=== PATIENT | male | born 1955 | race Caucasian/White ===

== ENCOUNTER 2021-10-06 16:58 | Outpatient (CLI) | payer BC, SELFPAY ==
[2021-10-06 17:38] LABS: Alanine Aminotransferase 32 U/L (6-50); Albumin Level 4.1 g/dL (3.5-5.1); Alkaline Phosphatase 85 U/L (38-126); Anion Gap 10 mmol/L (8-16); Aspartate Amino Transferase 54 U/L (17-59); Bilirubin,Total 0.6 mg/dL (0.2-1.3); Blood Urea Nitrogen 22 mg/dL (9-20); Calcium 8.7 mg/dL (8.4-10.2); Carbon Dioxide 25 mmol/L (22-30); Chloride 103 mmol/L (98-107); Estimated Glomerular Filt Rate 55; Glucose 87 mg/dL (65-110); Potassium 3.7 mmol/L (3.4-5.0); Sodium 138 mmol/L (137-145)
== END 2021-10-06 16:59 | disposition home or self-care (01) ==
LOC: ANHLAB 17:02
PROVIDERS: PCP Family Medicine; Visit Provider Family Medicine
DX: D64.9 Anemia, unspecified (principal); E87.1 Hypo-osmolality and hyponatremia
CPT/HCPCS: 36415; 80053

== ENCOUNTER 2021-10-11 16:43 | Outpatient (CLI) | payer BC, SELFPAY ==
[2021-10-11 17:07] LABS: Cholesterol 162 mg/dL (0-200); HDL Direct 81 mg/dL; Triglycerides 43 mg/dL (<150)
[2021-10-11 17:08] LABS: Alanine Aminotransferase 29 U/L (6-50); Albumin Level 4.2 g/dL (3.5-5.1); Alkaline Phosphatase 88 U/L (38-126); Anion Gap 9 mmol/L (8-16); Aspartate Amino Transferase 49 U/L (17-59); Bilirubin,Total 0.8 mg/dL (0.2-1.3); Blood Urea Nitrogen 21 mg/dL (9-20); Calcium 8.5 mg/dL (8.4-10.2); Carbon Dioxide 27 mmol/L (22-30); Chloride 104 mmol/L (98-107); Estimated Glomerular Filt Rate > 60; Glucose 92 mg/dL (65-110); Potassium 3.8 mmol/L (3.4-5.0); Sodium 140 mmol/L (137-145)
[2021-10-11 17:17] LABS: LDL Cholesterol Direct 54 mg/dL
[2021-10-11 17:33] LABS: Vitamin D 25 Hydroxy 13.9 ng/mL
[2021-10-11 17:37] LABS: Prostate Specific Antigen 1.6 ng/mL (< OR = 4.0)
[2021-10-11 17:57] LABS: Ferritin 9.76 ng/mL (11.1-264)
[2021-10-11 18:12] LABS: Folic Acid 9.8 ng/mL (2.76->20)
[2021-10-11 18:25] LABS: Free T4 Free Thyroxine 1.02 ng/mL (0.78-2.19)
== END 2021-10-11 16:44 | disposition home or self-care (01) ==
PROVIDERS: PCP Family Medicine; Visit Provider Family Medicine
DX: Z00.00 Encounter for general adult medical examination without abnormal findings (principal); Z12.5 Encounter for screening for malignant neoplasm of prostate; Z79.899 Other long term (current) drug therapy; I10 Essential (primary) hypertension
CPT/HCPCS: 36415; 80053; 80061; 82306; 82607; 82728; 82746; 84153; 84439; 84443; G0103

== ENCOUNTER 2021-10-13 10:40 | Outpatient (CLI) | payer BC, SELFPAY ==
[2021-10-13 10:59] LABS: Basophils Absolute Auto 0.1 K/mm3 (0.0-0.1); Basophils Percent Auto 1.3 % (0.2-1.2); Eosinophils Absolute Auto 0.2 K/mm3 (0-0.3); Eosinophils Percent Auto 3.2 % (0-4.4); Hematocrit 29.3 % (42.0-52.0); Hemoglobin 9.1 g/dL (14.0-18.0); Immature Granulocyte Absolute 0.02 K/mm3 (0.00-0.031); Immature Granulocyte Percent A 0.4 % (0-0.5); Lymphocytes Percent Auto 26.1 % (18.3-44.2); Mean Corpuscular HGB Conc 31.1 g/dl (32-36); Mean Corpuscular Hemoglobin 28.4 pg (26-34); Mean Corpuscular Volume 91.6 fl (80-100); Monocytes Absolute Auto 0.7 K/mm3 (0.1-0.6); Monocytes Percent Auto 13.8 % (2.6-8.5); Neutrophils Percent Auto 55.2 % (45.5-73.1); Platelet Count Result 234 k/mm3 (150-375); Red Cell Distribution Width 17.6 % (11.5-14.5); White Blood Count 5.4 K/mm3 (4.5-10.0)
== END 2021-10-13 10:41 | disposition home or self-care (01) ==
LOC: ANHLAB 10:42
PROVIDERS: PCP Family Medicine; Visit Provider Family Medicine
DX: D50.9 Iron deficiency anemia, unspecified (principal); D50.0 Iron deficiency anemia secondary to blood loss (chronic); I10 Essential (primary) hypertension
CPT/HCPCS: 36415; 85025

== ENCOUNTER 2021-11-21 00:23 | Day surgery (SDC) | payer BC, SELFPAY ==
[2021-11-08 15:45] VITALS: BMI 28.8
[2021-11-21 10:05] VITALS: BP 146/102; PULSE 111; RESP 18; TEMP 36.6; O2SAT 100
[2021-11-21] MEDS: LACTATED RINGERS 1,000 ML 150 ML IV CONT (10:06)
--- NOTE | 2021-11-21 10:20 | WPDHPUPDATE1 ---
History and Physical Update Update Date/Time: 11/21/21 10:20 History and Physical has been reviewed, including an updated exam of the patient. There are NO changes in the patient's condition. Risks, benefits, and alternatives have been discussed and questions answered. Patient agrees to proceed with procedure.
--- NOTE | 2021-11-21 10:26 | WPDANESEPPF ---
Anes - Initial Pre Proc Eval Procedure: Operation Date: 11/21/21 11:00 Proposed Procedures p Esophagogastroduodenoscopy & Colonoscopy - Juan Antonio Kraft MD Date/Time: 11/21/21 10:26 Surgeon: Juan Antonio Kraft MD Pre Op Diagnosis: Rectal bleed, EDER Patient Data Age: 66 Gender: M Height: 1.78 m Weight: 86.7 kg Last Vital Signs Temp 98 F 11/21/21 10:05 Pulse 111 H 11/21/21 10:05 Resp 18 11/21/21 10:05 BP 146/102 H 11/21/21 10:05 Pulse Ox 100 11/21/21 10:05 O2 Del Method Room Air 11/21/21 10:05 Allergies Allergy/AdvReac Type Severity Reaction Status Date / Time No Known Allergies Allergy Unknown Verified 11/21/21 10:03 Home Medications Medication Instructions Recorded Confirmed Type finasteride 5 mg tablet 5 mg PO DAILY #90 tabs 12/21/20 11/21/21 Rx tamsulosin 0.4 mg capsule (Flomax) 0.4 mg PO DAILY #90 caps 12/21/20 11/21/21 Rx olmesartan 20 1 tablet PO DAILY #90 tabs 12/23/20 11/21/21 Rx mg-hydrochlorothiazide 12.5 mg tablet (Benicar HCT) timolol maleate 0.25 % eye drops 1 drp ophthalmic (eye) Q12H #15 mL 01/26/21 11/21/21 Rx ferrous sulfate 325 mg (65 mg 325 mg PO BID 10/13/21 11/21/21 History iron) tablet dextroamphetamine sulfate 10 mg 20 mg PO BID #120 tabs 11/14/21 11/21/21 Rx tablet modafinil 200 mg tablet (Provigil) 200 mg PO QAM #30 tabs 11/21/21 11/21/21 Rx Patient hx anesthesia problems: none Family hx anesthesia problems: none Results Review: All pre-operative results and documents have been reviewed as part of the pre-operative evaluation. [facility] Past Medical History Medical History Adhesive capsulitis of right shoulder Cervical stenosis of spinal canal Spinal surgery times two last one a year ago Surgical History Surgical History S/P lumbar spinal fusion Status post cervical spinal fusion l4=l5 Family History Family History Father Hypertension Family history of lung cancer, Onset Age: 58 Mother Patient's mother is , Onset Age: 86 Family history of dementia Sibling Patient's brother is in good health Family history of alcoholism Family history of Alzheimer's disease Malignant neoplasm of prostate Family history of malignant neoplasm of thyroid Other No family history of cardiovascular disease Social History Social History Smoking status: Never smoker Alcohol intake: current Drinks per week: 32 Alcohol use details: hard liquer 4 - 5 drinks daily Substance use: never Substance use type: does not use Living arrangements: alone Spiritual care concerns: No Anes - Eval Final PreProcedure Day of Procedure 11/21/21 10:26 Patient weight: overweight Heart: irregular rhythm Lungs: clear to auscultation Airway: Mallampati scale class II Neurological: alert and oriented Last oral intake: >/= 8 hours ASA classification: III Emergent: no Anesthetic plan: proceed Anesthesia type and monitoring: general GIVS and standard monitoring Results Review: All pre-operative results and documents have been reviewed as part of the pre-operative evaluation. Informed Consent: The patient's anesthetic plan and its attendant risks and benefits were discussed with the patient/family/POA. Questions were solicited and answers provided to the satisfaction of the patient/family/POA.
--- NOTE | 2021-11-21 11:11 | SUR.OPER ---
EGD ENDED AT 1106, COLONOSCOPY BEGAN AT 1112.
[2021-11-21 11:24] VITALS: BP 102/68; PULSE 108; RESP 22; O2SAT 99
[2021-11-21 11:34] VITALS: BP 99/69; PULSE 87; RESP 21; O2SAT 97
[2021-11-21 11:44] VITALS: BP 123/88; PULSE 102; RESP 20; O2SAT 98
--- NOTE | 2021-11-22 06:17 | SUR.PHASEII ---
Dr Kraft aware of Positive H. Pylori.
== END 2021-11-21 12:00 | disposition home or self-care (01) ==
PROVIDERS: PCP Family Medicine; Visit Provider Internal Medicine Gastroenterology
PROC: 0DJ08ZZ Inspection of Upper Intestinal Tract, Via Natural or Artificial Opening Endoscopic (ICD-10-PCS; CPT 43235; principal; 2021-11-21 11:00)
DX: K62.5 Hemorrhage of anus and rectum (principal); Z86.010 Personal history of colon polyps; K62.3 Rectal prolapse; K64.8 Other hemorrhoids; D64.9 Anemia, unspecified; M48.02 Spinal stenosis, cervical region; Z98.1 Arthrodesis status; D50.9 Iron deficiency anemia, unspecified; I10 Essential (primary) hypertension; K64.9 Unspecified hemorrhoids
CPT/HCPCS: 45378; 43239; 87081; J7120

== ENCOUNTER 2022-06-05 11:22 | Outpatient (CLI) | payer BC, SELFPAY ==
--- NOTE | 2022-06-05 11:38 | ECG_ITS ---
Measurements Intervals [place] Rate: 102 P: 62 SD: 194 QRS: 44 QRSD: 73 T: 5 QT: 314 QTc: 411 Interpretive Statements BASELINE ARTIFACT/POOR QUALITY ECG SINUS TACHYCARDIA ABNORMAL RHYTHM ECG NO PREVIOUS ECG AVAILABLE FOR COMPARISON Electronically Signed On 06-05-2022 12:52:45 DIRECTOR WRITING by Jorje Hunt M.D.
[2022-06-05 11:59] LABS: Hematocrit 28.6 % (42.0-52.0); Hemoglobin 9.5 g/dL (14.0-18.0)
== END 2022-06-05 11:23 | disposition home or self-care (01) ==
LOC: ANHSURGERY 11:26
PROVIDERS: Anesthesiology; PCP Family Medicine; Visit Provider Urology
DX: Z01.818 Encounter for other preprocedural examination (principal); I10 Essential (primary) hypertension; D50.9 Iron deficiency anemia, unspecified; R94.31 Abnormal electrocardiogram [ECG] [EKG]; R00.0 Tachycardia, unspecified
CPT/HCPCS: 36415; 85014; 85018; 93005

== ENCOUNTER 2022-06-08 00:49 | Day surgery (SDC) | payer BC, SELFPAY ==
--- NOTE | 2022-05-31 07:48 | PM.IMHP ---
H&P: HPI History of Present Illness Date/Time: 05/31/22 07:48 Chief Complaint: Difficulty urinating Narrative: pleasant 66-year-old gentleman who recently came to the attention of our practice athough he has longstanding obstructive and irritable voiding symptoms. The time of presentation he had findings consistent with BPH, both by exam and cystoscopy. Additionally, he had a history of recurrent urinary tract infection, scant bilateral hydronephrosis and renal insufficiency. In light of these findings we opted to proceed with with TURP. We did discuss alternative minimally therapeutic options but felt they would not be adequate to control his symptom complex.He is aware of the risk including, but not limited to, adverse cardiopulmonary events, persistent voiding symptoms postoperatively, persistent urinary retention, hematuria. Review of Systems Cardiovascular: Cardiovascular: Denies chest pain, Denies lightheadedness, Denies palpitations and Denies dyspnea Respiratory: Respiratory: Denies dyspnea Gastrointestinal: Gastrointestinal: Denies diarrhea, Denies nausea and Denies vomiting Genitourinary: Genitourinary: Denies hematuria and Denies dysuria Endocrine: Endocrine: Denies palpitations [facility] Past Medical History Medical History Adhesive capsulitis of right shoulder Cervical stenosis of spinal canal Spinal surgery times two last one a year ago Surgical History Surgical History S/P lumbar spinal fusion Status post cervical spinal fusion l4=l5 Family History Family History Father Hypertension Family history of lung cancer, Onset Age: 58 Mother Patient's mother is , Onset Age: 86 Family history of dementia Sibling Patient's brother is in good health Family history of alcoholism Family history of Alzheimer's disease Malignant neoplasm of prostate Family history of malignant neoplasm of thyroid Other No family history of cardiovascular disease Social History Social History (Updated 04/13/22 @ 13:13 by Penelope Urbano MA) Smoking status: Never smoker Alcohol intake: current Drinks per week: 32 Alcohol use details: hard liquer 4 - 5 drinks daily Substance use: never Substance use type: does not use Lack of Transportation: No Lack of Food: Never True Current Housing: I Have Housing Concerned About Future Housing: No Difficulty Paying Gas/Electric Bills: No Difficulty Paying for Meds: No Currently Unemployed: No Education: Bachelor's Degree Difficulty w/ Childcare or Family Care: No Living arrangements: alone Spiritual care concerns: No Meds Home Medications and Allergies Home Medications Medication Instructions Recorded Confirmed Type timolol maleate 0.25 % eye drops 1 drp ophthalmic (eye) Q12H #15 mL 01/26/21 11/21/21 Rx ferrous sulfate 325 mg (65 mg 325 mg PO BID 10/13/21 11/21/21 History iron) tablet modafinil 200 mg tablet (Provigil) 200 mg PO QAM #30 tabs 11/21/21 11/21/21 Rx finasteride 5 mg tablet 5 mg PO DAILY #90 tabs 12/05/21 Rx olmesartan 20 1 tablet PO DAILY #90 tabs 12/05/21 Rx mg-hydrochlorothiazide 12.5 mg tablet (Benicar HCT) tamsulosin 0.4 mg capsule (Flomax) 0.4 mg PO DAILY #90 caps 12/05/21 Rx omeprazole 40 mg capsule,delayed 40 mg PO BID #180 caps 02/23/22 Rx release dextroamphetamine sulfate 10 mg 20 mg PO BID #120 tabs 05/08/22 Rx tablet dextroamphetamine sulfate 10 mg 20 mg PO BID #120 tabs 05/08/22 Rx tablet dextroamphetamine sulfate 10 mg 20 mg PO BID #120 tabs 05/08/22 Rx tablet Allergies Allergy/AdvReac Type Severity Reaction Status Date / Time No Known Allergies Allergy Unknown Verified 04/13/22 13:10 Exam Const: General: no acute distress Resp: Effort & Inspection: normal respiratory effort GI: Ins
--- NOTE | 2022-06-05 09:46 | PC.NURSE ---
Report to the Outpatient Waiting Room, entrance under the green pavilion located off [facility], at time _1130 on date ___06/08/22____. Planned Procedure Time: _1330 . Time changes happen often and if your time is changed the preop area will call you the afternoon before. - You and your visitor will be asked to self-screen and do not enter if you have any COVID symptoms. - Only one visitor is requested with a max of two and NO children visitors are allowed at this time. - The patient visitor may be requested to leave or wait in car when not with patient due to distancing restrictions. - A mask is optional within the hospital at this time. Patients may have clear liquids (water, carbonated beverages, clear teas, apple juice) until 3 hours prior to surgery with a maximum of 20 ounces. - No food from midnight until time of surgery - Infants may have breast milk until 4 hours before surgery, formula 6 hours prior to surgery. - Children will be allowed to drink immediately following surgery. If applicable, please bring a bottle or sippy cup to assist with drinking. Juice, water, soda, and popsicles are readily available. For infants on formula, please bring formula the day of surgery. Pacifiers are allowed. Take the following medications with a SIP of water the morning of surgery: ____EYE DROPS DO NOT STOP ANY OF YOUR OTHER PRESCRIPTION MEDICATIONS PRIOR TO SURGERY ?EXCEPT THE FOLLOWING Medications to discontinue per physician NONE Date to take last dose Please no make-up, nail indian, hairspray, perfume, deodorant, or body powder the day of surgery. No jewelry (including any body piercings) or valuables the day of surgery, leave them at home. Please take a shower or bath the night before, or the morning of, surgery with an antibacterial soap. Wear comfortable, loose fitting clothing. Children are encouraged to wear pajamas. - Jewelry must be removed prior to entering the operating room. Rings and piercings that are not removed may be cut off. - The hospital will not accept responsibility for valuables. - Please leave all valuables, including medications, at home the day of surgery. If you are going home after surgery, a licensed medical van driver must drive you home. - NO public transportation without another adult if you receive anesthesia. - We recommend that an adult stay with you for 24 hours following discharge. - We also recommend that you do not drive, make important decision, drink alcoholic beverages, or take any drugs that were not prescribed by your health care provider for at least 24 hours after your discharge time Follow any additional instructions given to you from your surgeon. If you or anyone in your household have experienced Covid symptoms in the past week, please notify your surgeon or the nurse liaison at the phone number below for possible testing. Telephone instructions given to __PATIENT and asked if any additional questions and then verbalized understanding. Patient advised to call surgeon office or pre surgery nurse liaison [phone] if any additional questions.
[2022-06-05 09:52] VITALS: BMI 28.7
[2022-06-08] VITALS (12 sets, daily range): BP systolic 85–108; BP diastolic 53–77; PULSE 77–114; RESP 13–21; TEMP 36.3–36.8; O2SAT 95–100
--- NOTE | 2022-06-08 06:35 | WPDHPUPDATE1 ---
History and Physical Update Update Date/Time: 06/08/22 06:35 History and Physical has been reviewed, including an updated exam of the patient. There are NO changes in the patient's condition. Risks, benefits, and alternatives have been discussed and questions answered. Patient agrees to proceed with procedure.
[2022-06-08] MEDS: LACTATED RINGERS 1,000 ML 30 ML IV CONT ×2 (10:06→12:31)
--- NOTE | 2022-06-08 13:19 | WPDANESEPPF ---
Anes - Initial Pre Proc Eval Procedure: Operation Date: 06/08/22 14:30 Proposed Procedures p Trans Urethral Resection Prostate - Alvin Her MD Date/Time: 06/08/22 13:19 Surgeon: Alvin Her MD Pre Op Diagnosis: bph Patient Data Age: 66 Gender: M Height: 1.78 m Weight: 82.6 kg Last Vital Signs Temp 36.6 C 06/08/22 12:27 Pulse 100 06/08/22 12:27 Resp 14 06/08/22 12:27 BP 98/61 L 06/08/22 12:27 Pulse Ox 95 06/08/22 12:27 O2 Del Method Room Air 06/08/22 12:27 Allergies Allergy/AdvReac Type Severity Reaction Status Date / Time No Known Allergies Allergy Unknown Verified 06/08/22 12:57 Home Medications Medication Instructions Recorded Confirmed Type timolol maleate 0.25 % eye drops 1 drp ophthalmic (eye) Q12H #15 mL 01/26/21 06/05/22 Rx ferrous sulfate 325 mg (65 mg 325 mg PO BID 10/13/21 06/05/22 History iron) tablet finasteride 5 mg tablet 5 mg PO DAILY #90 tabs 12/05/21 06/05/22 Rx olmesartan 20 1 tablet PO DAILY #90 tabs 12/05/21 06/05/22 Rx mg-hydrochlorothiazide 12.5 mg tablet (Benicar HCT) tamsulosin 0.4 mg capsule (Flomax) 0.4 mg PO DAILY #90 caps 12/05/21 06/05/22 Rx omeprazole 40 mg capsule,delayed 40 mg PO BID #180 caps 02/23/22 06/05/22 Rx release dextroamphetamine sulfate 10 mg 20 mg PO BID #120 tabs 05/08/22 06/05/22 Rx tablet Patient hx anesthesia problems: none Family hx anesthesia problems: none Results Review: All pre-operative results and documents have been reviewed as part of the pre-operative evaluation. [facility] Past Medical History Medical History Adhesive capsulitis of right shoulder Cervical stenosis of spinal canal Spinal surgery times two last one a year ago Surgical History Surgical History S/P lumbar spinal fusion Status post cervical spinal fusion l4=l5 Family History Family History Father Hypertension Family history of lung cancer, Onset Age: 58 Mother Patient's mother is , Onset Age: 86 Family history of dementia Sibling Patient's brother is in good health Family history of alcoholism Family history of Alzheimer's disease Malignant neoplasm of prostate Family history of malignant neoplasm of thyroid Other No family history of cardiovascular disease Social History Social History Smoking status: Never smoker Alcohol intake: current Drinks per week: 32 Alcohol use details: hard liquer 4 - 5 drinks daily Substance use: never Substance use type: does not use Lack of Transportation: No Lack of Food: Never True Current Housing: I Have Housing Concerned About Future Housing: No Difficulty Paying Gas/Electric Bills: No Difficulty Paying for Meds: No Currently Unemployed: No Education: Bachelor's Degree Difficulty w/ Childcare or Family Care: No Living arrangements: alone Spiritual care concerns: No Anes - Eval Final PreProcedure Day of Procedure 06/08/22 13:19 Patient weight: overweight Heart: regular rate and rhythm Lungs: clear to auscultation Airway: Mallampati scale class II Neurological: alert and oriented Last oral intake: >/= 8 hours ASA classification: III Emergent: no Anesthetic plan: proceed Anesthesia type and monitoring: general LMA and standard monitoring Results Review: All pre-operative results and documents have been reviewed as part of the pre-operative evaluation. Informed Consent: The patient's anesthetic plan and its attendant risks and benefits were discussed with the patient/family/POA. Questions were solicited and answers provided to the satisfaction of the patient/family/POA.
--- NOTE | 2022-06-08 13:24 | SUR.PREOP ---
patient updated on time delay
[2022-06-08] MEDS: ceFAZolin 2 GM/D5W 50 ML 2 GM/50 ML BAG IVPB (15:10)
[2022-06-08] MEDS: LIDOCAINE HCL 2% GEL UROJET 10 ML PKG MUCOUS MEM (15:18)
--- NOTE | 2022-06-08 16:28 | P.OP_ITS ---
Procedure Note - Detailed Date of Procedure 06/08/22 Pre-op Diagnosis BPH Post-op Diagnosis Same Procedure Performed TURP Surgeon Alvin Her MD Anesthesia General Description of Procedure The patient was brought to the operative suite where he is prepped and draped in routine sterile fashion while in the dorsal lithotomy position after the uneventful induction of a general LMA anesthetic. A 27 [place] resectoscope sheath was placed into his bladder. He had no urethral strictures. The patient had trilobar hyperplasia with a large median lobe. The bladder itself was endoscopically normal, showing no mucosal hyperemia, intravesical neoplasm or foreign bodies. There was a single, orthotopic ureteral orifice bilaterally. These orifices were identified and preserved throughout the remainder of the procedure. Attention was first turned to resection of the median lobe. This resection was undertaken from the bladder neck to the verumontanum and carried out until the transverse fibers of the bladder neck were identified. The left lateral lobe was then resected starting at the 6 o'clock position, working counter clockwise to the 12 o'clock position. Again, resection was carried out from the bladder neck to the verumontanum until the capsular fibers of the prostate were identified. The right lateral lobe was resected in a similar fashion starting at the 6 o'clock position working clockwise to the 12 o'clock position and carried out until the capsular fibers of the prostate were identified. Apical tissue was then circumferentially resected. All chips were evacuated from the bladder using an [employer] evacuator. Hemostasis was obtained with electric cautery. The ureteral orifices were again inspected and found to be without injury. Estimated blood loss throughout this procedure was 100cc. The patient was taken to recovery room having tolerated this well. Estimated Blood Loss -100.0 Drains Yes Packing No Pathology Yes Disposition PACU
[2022-06-08] MEDS: FERROUS SULFATE 324 MG TABLET PO (17:41)
[2022-06-08] MEDS: DOCUSATE SODIUM 100 MG CAPSULE PO (20:17)
[2022-06-08] MEDS: PANTOPRAZOLE 40 MG TABLET PO (20:17)
[2022-06-08] MEDS: HYDROcodone/acetaminophen (*CRX) 5-325 MG TABLET 1 TAB PO (21:42)
[2022-06-08] MEDS: HYOSCYAMINE SULFATE 0.125 MG TABLET SUBLINGUAL (21:43)
[2022-06-08] MEDS: TIMOLOL MALEATE 0.25% OP SOLN 5 ML BOTTLE 1 DROP EACH EYE (22:58)
[2022-06-09 03:07] VITALS: BP 86/54; PULSE 83; RESP 18; TEMP 36.8; O2SAT 100
[2022-06-09 03:43] VITALS: BP 90/62
[2022-06-09 05:13] LABS: Hematocrit 26.4 % (42.0-52.0); Hemoglobin 8.8 g/dL (14.0-18.0)
[2022-06-09 05:26] LABS: Anion Gap 4 mmol/L (8-16); Blood Urea Nitrogen 34 mg/dL (9-20); Carbon Dioxide 31 mmol/L (22-30); Chloride 101 mmol/L (98-107); Estimated CRCL calculation 48 ml/min; Estimated Glomerular Filt Rate 51; Glucose 102 mg/dL (65-110); Potassium 3.6 mmol/L (3.4-5.0); Sodium 136 mmol/L (137-145)
[2022-06-09] MEDS: HYOSCYAMINE SULFATE 0.125 MG TABLET SUBLINGUAL (05:43)
--- NOTE | 2022-06-09 07:59 | WPDUROPN2 ---
Progress Note: A&P Assessment and Plan (1) Enlarged prostate without lower urinary tract symptoms (luts): Code(s): N40.0 - Benign prostatic hyperplasia without lower urinary tract symptoms Status: Acute Assessment and Plan: Doing well POD #1 Stop CBI now / voiding trial later today if urine remains clear. Subjective Subjective Date/Time Seen: 06/09/22 07:59 Comfortable, no complaints Review of Systems Cardiovascular: Cardiovascular: Denies chest pain, Denies lightheadedness, Denies palpitations and Denies dyspnea Respiratory: Respiratory: Denies dyspnea Gastrointestinal: Gastrointestinal: Denies diarrhea, Denies nausea and Denies vomiting Genitourinary: Genitourinary: Denies hematuria and Denies dysuria Endocrine: Endocrine: Denies palpitations Exam Const: General: no acute distress Resp: Effort & Inspection: normal respiratory effort GI: Inspection: non-distended GI Palp: No abdominal tenderness and No Guarding due to palpation present (GI) Auscultation: normal bowel sounds Objective Data Vital Signs Vital Signs: Vital Signs - 24 hr 06/08/22 12:27 06/08/22 16:05 06/08/22 16:20 Temperature 98 F 98.2 F Pulse Rate 100 95 96 Respiratory Rate 14 21 H 20 Blood Pressure 98/61 L 99/68 L 103/74 Pulse Oximetry 95 100 100 Oxygen Delivery Room Air Simple Face Mask Simple Face Mask Oxygen Flow Rate 10 10 06/08/22 16:35 06/08/22 16:50 06/08/22 17:05 Temperature Pulse Rate 97 95 90 Respiratory Rate 13 19 19 Blood Pressure 98/77 L 101/66 89/68 L Pulse Oximetry 96 97 99 Oxygen Delivery Room Air Room Air Room Air Oxygen Flow Rate 06/08/22 17:16 06/08/22 17:38 06/08/22 17:53 Temperature 97.7 F 98.1 F Pulse Rate 90 77 93 Respiratory Rate 19 18 18 Blood Pressure 89/68 L 85/56 L 95/69 L Pulse Oximetry 99 100 100 Oxygen Delivery Room Air Oxygen Flow Rate 06/08/22 18:23 06/08/22 17:57 06/08/22 19:07 Temperature 97.4 F L 97.5 F L Pulse Rate 100 114 H Respiratory Rate 18 18 Blood Pressure 86/53 L 108/65 Pulse Oximetry 97 97 Oxygen Delivery Room Air Oxygen Flow Rate 06/08/22 22:00 06/08/22 20:00 06/09/22 03:07 Temperature 97.4 F L 98.2 F Pulse Rate 81 83 Respiratory Rate 18 18 Blood Pressure 101/70 86/54 L Pulse Oximetry 99 100 Oxygen Delivery Room Air Oxygen Flow Rate 06/09/22 03:43 Temperature Pulse Rate Respiratory Rate Blood Pressure 90/62 L Pulse Oximetry Oxygen Delivery Oxygen Flow Rate Intake/Output Intake/Output: Intake & Output 06/06/22 06/07/22 06/08/22 06/09/22 23:59 23:59 23:59 23:59 Intake Total 4100 300 Output Total 5075 3450 Balance -975 -3150 Meds/Results Medications: Active Medications Generic Name Dose Route Start Last Admin Trade Name Freq PRN Reason Stop Dose Admin Hydrocodone Bitart/Acetaminophen 1 tab 06/08/22 17:22 06/08/22 21:42 Hydrocodone/Acetaminophen (*Crx) 5-325 Mg Tablet PO 1 tab Q4H PRN Administration Pain Rated 1-6 Cephalexin HCl 500 mg 06/09/22 09:00 Cephalexin 500 Mg Capsule PO QID [facility] Docusate Sodium 100 mg 06/08/22 21:00 06/08/22 20:17 Docusate Sodium 100 Mg Capsule PO 100 mg Q12HR HUY Administration Ferrous Sulfate 324 mg 06/08/22 17:22 06/08/22 17:41 Ferrous Sulfate 324 Mg Tablet PO 324 mg BID HUY Administration Hydrochlorothiazide 12.5 mg 06/09/22 09:00 Hydrochlorothiazide 12.5 Mg Capsule PO 07/09/22 08:59 DAILY HUY Hyoscyamine 0.125 mg 06/08/22 17:22 06/09/22 05:43 Hyoscyamine Sulfate 0.125 Mg Tablet SUBLINGUAL 0.125 mg Q6H PRN Administration Bladder Spasm Miscellaneous Information 0 each 06/08/22 00:01 Dextroamphetamine Nonform Can Pt Bring From Home? XX 07/08/22 00:00 CLARIFY [facility] Morphine Sulfate 2 mg 06/08/22 17:22 Morphine Sulfate (*Crx) 2 Mg/Ml Inj IV PUSH Q2H PRN Pain Rated 7-10 Naloxone HCl 0.1 mg 06/08/22 17:22 Naloxone Hcl 0.
[2022-06-09] MEDS: OLMESARTAN MEDOXOMIL 20 MG TABLET PO (09:09)
[2022-06-09] MEDS: FERROUS SULFATE 324 MG TABLET PO (09:09)
[2022-06-09] MEDS: DOCUSATE SODIUM 100 MG CAPSULE PO (09:09)
[2022-06-09] MEDS: CEPHALEXIN 500 MG CAPSULE PO ×2 (09:09→12:55)
[2022-06-09] MEDS: hydroCHLOROthiazide 12.5 MG CAPSULE PO (09:09)
[2022-06-09] MEDS: PANTOPRAZOLE 40 MG TABLET PO (09:10)
[2022-06-09] MEDS: TIMOLOL MALEATE 0.25% OP SOLN 5 ML BOTTLE 1 DROP EACH EYE (09:10)
[2022-06-09 10:45] VITALS: BP 126/60; PULSE 87; RESP 16; TEMP 36.7; O2SAT 100
--- NOTE | 2022-06-09 13:22 | P.DS_ITS ---
DS: Admitting Diagnosis Discharge Date 06/09/2022 Admitting Diagnosis BPH DS: Summary Hospital Course Hospital Course: This patient with longstanding prostatism refractory for medical management was admitted on the morning of his planned TURP. The procedure was undertaken on that same day in an uneventful fashion. His post-operative course was, likewise, uneventful. On the evening of the procedure he was tolerating a diet. On POD#1 his urine was clear on CBI. The urine remained clear and, therefore, the catheter was removed late morning. The patient was observed for several ho urs, until he demonstrated he could void effectively without significant hematuria. He was discharged with careful instruction on limiting physical activity x2 weeks and plans to f/ in 2-3 weeks. At discharge he was comfortable and tolerating a diet. Time Spent with Patient Time attestation: Total time spent providing and/or coordinating discharge services: DS: Data Data Completed and Pending Pending studies at discharge: Pending at discharge 06/08/22 15:48 Surgical [PTH] Routine Labs on day of discharge: Labs from last 24 hours 06/09/22 06/09/22 04:55 04:55 Hgb 8.8 L Hct 26.4 L Sodium 136 L Potassium 3.6 Chloride 101 Carbon Dioxide 31 H Anion Gap 4 L BUN 34 H D Creatinine 1.40 H Estim Creat Clear Calc 48 Estimated GFR 51 L Glucose 102 Calcium 8.0 L Discharge Plan Discharge Patient Disposition: Home, Self-Care Discharge Instructions: 1) Activity: No lifting/straining >15lbs. x2 weeks. 2) Diet: Resume normal pre-admission diet. 3) Follow-up: 2-3 weeks / call office for appointment ([phone]). Stand Alone Forms: General Discharge Instructions Discharge Orders: Discharge Order (Routine); Ordered 06/09/22 Ordered By: Alvin Her Discharge Medications: New hydrocodone-acetaminophen 5-325 mg tablet 1 - 2 tablet PO Q6H PRN (Reason: pain) Qty: 20 0RF ciprofloxacin HCl 500 mg tablet 500 mg PO Q12H Qty: 10 0RF docusate sodium [Colace] 100 mg capsule 100 mg PO DAILY Qty: 30 0RF Continued timolol maleate 0.25 % drops 1 drp EACH EYE Q12H Qty: 15 3RF ferrous sulfate 325 mg (65 mg iron) tablet 325 mg PO BID olmesartan-hydrochlorothiazide [Benicar HCT] 20-12.5 mg tablet 1 tablet PO DAILY Qty: 90 3RF omeprazole 40 mg capsule,delayed release(DR/EC) 40 mg PO BID Qty: 180 1RF Label Comments: TAKES ONCE A DAY dextroamphetamine sulfate 10 mg tablet 20 mg PO BID Qty: 120 0RF Rx Instructions: Fill in June finasteride 5 mg tablet 5 mg PO DAILY Qty: 90 3RF tamsulosin [Flomax] 0.4 mg capsule 0.4 mg PO DAILY Qty: 90 3RF
== END 2022-06-09 14:20 | disposition home or self-care (01) ==
LOC: ANHSURGERY 16:45 → ANH2MED 17:25
PROVIDERS: PCP Family Medicine; Visit Provider Urology
PROC: 0VT08ZZ Resection of Prostate, Via Natural or Artificial Opening Endoscopic (ICD-10-PCS; CPT 52601; principal; 2022-06-08 14:30)
DX: N40.1 Benign prostatic hyperplasia with lower urinary tract symptoms (principal); N28.9 Disorder of kidney and ureter, unspecified; Z98.1 Arthrodesis status
CPT/HCPCS: 52601; 36415; 80048; 85014; 85018; 88305; A9270; C1758; J0690; J2250; J2370; J2405; J2704; J3010; J7120

== ENCOUNTER 2023-07-21 12:02 | Inpatient (IN) | payer MEDICARE, BC, SELFPAY ==
[2023-07-21] VITALS (8 sets, daily range): BP systolic 137–170; BP diastolic 93–107; PULSE 75–116; RESP 16–19; TEMP 36.8–37; O2SAT 96–100; BMI 28.4
--- NOTE | ~2023-07-21 | US_ITS ---
EXAMINATION: US venous doppler [facility] DATE: 07/22/2023 13:42 INDICATION: Bilateral lower extremity swelling. TECHNIQUE: Grayscale images without and with compression and Doppler images of the bilateral lower ex tremity veins were obtained. COMPARISON: None FINDINGS: The right common femoral vein, profunda (deep) femoral vein, femoral vein, popliteal vein, peroneal v ein, posterior tibial veins, gastrocnemius vein, and greater saphenous vein are patent. The left common femoral vein, profunda (deep) femoral vein, femoral vein, popliteal vein, peroneal v ein, posterior tibial veins, gastrocnemius vein, and greater saphenous vein are patent. IMPRESSION: Patent bilateral lower extremity veins. No evidence of deep venous thrombosis. Reviewed, dictated and finalized at location K.
--- NOTE | ~2023-07-21 | XR_ITS ---
XR chest 2V DATE: 07/21/2023 12:50 INDICATION: Shortness of breath TECHNIQUE: AP and lateral views COMPARISON: None FINDINGS: There is relatively high position of the right leaf of the diaphragm and bibasilar atelecta sis. The lungs otherwise appear clear. Heart size is likely within normal range. No pleural effusion or pulmonary mass congestion or pneumothorax is evident. There is lower anterior cervical spine surgical fusion and posterior cervical and upper thoracic pedi sheldon screws and rods. IMPRESSION: Relatively high position of diaphragm with associated atelectasis at the lung bases Postoperative change of the cervical and upper thoracic spine Reviewed, dictated and finalized at location A. IMPRESSION: Relatively high position of diaphragm with associated atelectasis a t the lung bases Postoperative change of the cervical and upper thoracic spine
--- NOTE | ~2023-07-21 | CT_ITS ---
EXAMINATION: CTA chest PE protocol DATE: 07/25/2023 10:19 INDICATION: Shortness of breath. TECHNIQUE: Computed tomography angiography (CTA) of the chest was performed with 100 mL Omnipaque-350 intravenous contrast timed to evaluate the pulmonary arteries. Coronal maximum intensity projection 3D-reconstructions were created by the technologist. Automated exposure control and iterative reconst ruction technique were employed. The dose-length product was 447.95 mGy-cm. COMPARISON: Chest single view 07/22/2023 FINDINGS: The lung volumes are small. There is mild atelectasis in the inferior lungs. The heart size is normal. There are coronary artery calcifications. No pericardial effusion. There is no pulmonary embolus. There is bilateral gynecomastia. There are changes of posterior fusion procedure in cervicot horacic spine. There are changes of anterior fusion procedure in cervical spine. There are chronic co mpression fractures of T1 and T2. There is severe thoracic spondylosis. IMPRESSION: 1. No pulmonary embolus. 2. Small lung volumes with mild atelectasis in the inferior lungs. Reviewed, dictated and finalized at location A.
--- NOTE | ~2023-07-21 | XR_ITS ---
EXAMINATION: XR chest 1V portable Exam Date/Time: 07/22/2023 16:54 CDT HISTORY: shortness of breath Comparison: 07/21/2023. RESULT: Lines, tubes, and devices: Partially visualized cervical thoracic fusion hardware. Lungs and pleura: Low volumes with crowding. Streaky bibasilar atelectasis/scar. Cardiomediastinal silhouette: Stable. Other: No acute osseous or upper abdominal finding. IMPRESSION: No acute cardiopulmonary process. Reviewed, dictated and finalized at location K.
--- NOTE | ~2023-07-21 | XR_ITS ---
XR sniff test without CXR2V DATE: 07/21/2023 13:24 INDICATION: Relatively high position of diaphragms. Shortness of breath. TECHNIQUE: Fluoroscopy was performed during infiltrate expiratory insignificant maneuvers. 0.9 minutes fluoroscopy time 8.03 Gycm2 COMPARISON: None FINDINGS: The patient didn't seem very engaged with the procedure and didn't appear to show much coop eration. There is limited but normal excursion of both leaves of the diaphragm, without evidence of paradoxica l motion. IMPRESSION: Limited excursion of the diaphragm, possibly due in part to lack of patient full cooperat ion No paradoxical motion is demonstrated Reviewed, dictated and finalized at Location A. Reviewed, dictated and finalized at location A. IMPRESSION: Limited excursion of the diaphragm, possibly due in part to lack of patient full cooperation No paradoxical motion is demonstrated
--- NOTE | 2023-07-21 12:28 | ECG_ITS ---
Measurements Intervals [place] Rate: 97 P: 55 NC: 161 QRS: 46 QRSD: 72 T: 34 QT: 337 Avg RR: 615 QTc: 392 QTcB: 429 QTcF: 396 Interpretive Statements SINUS RHYTHM WITH OCCASIONAL SUPRAVENTRICULAR COMPLEXES BORDERLINE ECG SEE SCANNED COPY FOR SIGNATURE MTDD
[2023-07-21 12:31] LABS: Basophils Percent Auto 0.5 % (0.2-1.2); Eosinophils Absolute Auto 0.1 K/mm3 (0-0.3); Eosinophils Percent Auto 1.1 % (0-4.4); Hematocrit 29.8 % (42.0-52.0); Hemoglobin 10.7 g/dL (14.0-18.0); Immature Granulocyte Absolute 0.03 K/mm3 (0.00-0.031); Immature Granulocyte Percent A 0.5 % (0-0.5); Lymphocytes Absolute Auto 0.57 K/mm3 (0.9-3.2); Lymphocytes Percent Auto 8.8 % (18.3-44.2); Mean Corpuscular HGB Conc 35.9 g/dl (32-36); Mean Corpuscular Hemoglobin 36.1 pg (26-34); Mean Corpuscular Volume 100.7 fl (80-100); Mean Platelet Volume 8.9 fl (7.4-10.4); Monocytes Absolute Auto 0.9 K/mm3 (0.1-0.6); Monocytes Percent Auto 13.5 % (2.6-8.5); Neutrophils Absolute Auto 4.9 K/mm3 (1.3-6.7); Neutrophils Percent Auto 75.6 % (45.5-73.1); Platelet Count Result 196 k/mm3 (150-375); Red Blood Count 2.96 M/mm3 (4.6-6.20); Red Cell Distribution Width 12.3 % (11.5-14.5); White Blood Count 6.5 K/mm3 (4.5-10.0)
[2023-07-21] MEDS: IPRATROPIUM 0.5 MG/ALBUTEROL SULFATE 2.5 MG AMPUL.NEB 3 ML INHALATION ×2 (12:31→21:10)
[2023-07-21 12:41] LABS: Alanine Aminotransferase 42 U/L (6-50); Albumin Level 4.2 g/dL (3.5-5.1); Alkaline Phosphatase 73 U/L (38-126); Anion Gap 8 mmol/L (4-12); Aspartate Amino Transferase 71 U/L (17-59); Bilirubin,Total 1.1 mg/dL (0.2-1.3); Blood Urea Nitrogen 11 mg/dL (9-20); Calcium 8.9 mg/dL (8.4-10.2); Carbon Dioxide 27 mmol/L (22-30); Chloride 87 mmol/L (98-107); Estimated CRCL calculation 90 ml/min; Estimated Glomerular Filt Rate > 60; Glucose 131 mg/dL (65-110); Lactic Acid Reflex 2.1 mmol/L (0.7-2.0); Potassium 3.7 mmol/L (3.4-5.0); Sodium 122 mmol/L (137-145)
--- NOTE | 2023-07-21 12:45 | ED.GENADULT ---
HPI - General Adult General Chief complaint: Shortness of Breath/Dyspnea Stated complaint: sob Time Seen by Provider: 07/21/23 12:05 History of Present Illness HPI narrative: Patient is a 68-year-old male with history of cervical stenosis and spinal surgery who presents ER with shortness of breath. Sudden onset over last 24 hours. Patient is a heavy drinker. He is a poor historian and his brother is a family physician is present the bedside to help provide history. Patient had been doing well throughout the week but apparently this morning has been having frequent cough. He has mild sinus congestion. Denies issues with swallowing or any history of CHF/ COPD. He cannot identify any alleviating factors. Denies shaking chills. He is without pain in his chest or abdomen. Related Data Home Medications Medication Instructions Recorded Confirmed ferrous sulfate 325 mg (65 mg 325 mg PO BID 10/13/21 07/21/23 iron) tablet Allergies Allergy/AdvReac Type Severity Reaction Status Date / Time No Known Allergies Allergy Unknown Verified 07/21/23 16:37 Review of Systems Review of Systems: All systems reviewed & are unremarkable except as noted in HPI and below Constitutional: Constitutional: Reports no additional constitutional complaints ENT: Denies dysphagia, Reports nasal congestion and Denies sore throat Cardiovascular: Cardiovascular: Reports no additional cardiovascular complaints Respiratory: Respiratory: Reports cough, Reports dyspnea and Denies wheezing Gastrointestinal: Gastrointestinal: Reports no additional gastrointestinal complaints Genitourinary: Genitourinary: Reports no additional male genitourinary complaints PMF Past Medical History Medical History Adhesive capsulitis of right shoulder Cervical stenosis of spinal canal Spinal surgery times two last one a year ago Internal hemorrhoids without mention of complication Muscle function loss Surgical History Surgical History History of lumbar discectomy S/P lumbar spinal fusion S/P TURP Status post cervical spinal fusion l4=l5 Family History Family History Father Hypertension Family history of lung cancer, Onset Age: 58 Mother Patient's mother is , Onset Age: 86 Family history of dementia Sibling Patient's brother is in good health Family history of alcoholism Family history of Alzheimer's disease Malignant neoplasm of prostate Family history of malignant neoplasm of thyroid Other No family history of cardiovascular disease Social History Social History (Updated 05/18/23 @ 10:09 by Meryl Jimenez MA) Smoking status: Never smoker Alcohol intake: current Drinks per week: 42 Alcohol use details: hard liquer 6 drinks daily Substance use: never Substance use type: does not use Do You Feel Safe in your Home?: Yes Lack of Transportation: No Lack of Food: Never True Current Housing: I Have Housing Concerned About Future Housing: No Difficulty Paying Gas/Electric Bills: No Difficulty Paying for Meds: No Currently Unemployed: No Education: Bachelor's Degree Difficulty w/ Childcare or Family Care: No Living arrangements: alone Spiritual care concerns: No Exam Narrative: GENERAL: Well-appearing, well-nourished, and in no acute distress. HEAD: Normocephalic, atraumatic. EYES: PERRL and EOMI. ENT: Mucous membranes moist. NECK: Supple. Large scar posterior neck where patient had C-spine surgery. CHEST: Clear to auscultation. No respiratory distress. Frequent coughing. HEART: Regular rate and rhythm. Normal peripheral pulses. ABDOMEN: Soft, nontender, nondistended. EXTREMITIES: Normal range of motion. 1+ edema. SKIN: Warm, dry, no rash. NEURO: Alert and oriented x3. PSYCH: Normal mood and affe
[2023-07-21 12:49] LABS: NT Pro B Type Natriuretic Pept 435 pg/mL (19.9-100)
[2023-07-21 13:06] LABS: Influenza A QL RT-PCR Negative (Negative); Influenza B QL RT-PCR Negative (Negative); RSV RNA, RT-PCR Negative (Negative); SARS-CoV-2 RNA PCR Negative (Negative)
[2023-07-21 15:28] LABS: Reflex Lactic Acid Yes or No Add Lactic
[2023-07-21 15:57] LABS: Lactic Acid 0.9 mmol/L (0.7-2.0)
--- NOTE | 2023-07-21 16:14 | ADMGEN ---
This patient, Jose Armando Shaw, was admitted to 2 Medical Room 260-. Patient/family oriented to hospital policies and general routines including ID bracelet, bed and alarms, visiting hours, pain management, procedures, bathroom and other care routines, personal items, smoking policy, room service/diet, and visiting hours. Information on how to activate the Rapid Response Team has been discussed. Patient/Family are encouraged to report perceived risks to care and to ask questions if they do not understand what they are told or what they should do.
[2023-07-21] MEDS: SODIUM CHLORIDE 0.9% IV 1,000 ML 100 ML IV CONT (17:29)
--- NOTE | 2023-07-21 18:26 | PM.IMHP ---
H&P: HPI History of Present Illness Date/Time: 07/21/23 18:15 Chief Complaint: Shortness of breath. Narrative: This is a pleasant 68-year-old male with history of alcohol abuse, alcohol withdrawal syndrome, hypertension, cervical stenosis status post fusion, obstructive sleep apnea, narcolepsy, and iron deficiency anemia who presented to the emergency department for evaluation of shortness of breath. The patient provides the following history. He reports a gradual onset of shortness of breath over the past 24 hours or so. He did not sleep well last night although he denies overt orthopnea when questioned. He has a relatively mild nonproductive cough and rhinorrhea though that is not necessarily unusual for him. He has noticed swelling in his legs which is new. He denies syncope, near syncope, fever, chills, sweats, sore throat dysphagia, concerns for aspiration, chest pain, pleuritic pain, palpitations, paroxysmal nocturnal dyspnea, calf pain, nausea, vomiting, and diarrhea. In the ED: He was afebrile arrival with an SpO2 in the upper 90s on room air. The remainder of his vital signs have been stable. Labs were significant for a WBC count of 6.5, hemoglobin 10.7, MCV 100.7, sodium 122, potassium 3.6, chloride 86, BUN 11, creatinine 0.70, glucose 131, lactic acid 2.1, AST 71, proBNP 435. Chest x-ray showed relatively high position of diaphragm with associated atelectasis at the lung bases. Sniff test showed limited excursion of the diaphragm, possibly due in part to lack of patient full cooperation. He was given a nebulizer treatment and was started on normal saline and he is being admitted in this setting for further evaluation. Review of Systems Review of Systems: Twelve systems were reviewed. Last drink was sometime last evening. He reports that he is able to sleep throughout the night without having to get up for shots of alcohol. He has some slight tremors at this time and is mildly anxious. He denies hallucinations. He also denies history of alcohol withdrawal seizures. Except as documented, all other systems were reviewed negative. [facility], [facility] Past Medical History Medical History (Updated 07/21/23 @ 22:34 by Shaina Diaz PA-C) Alcohol abuse Benign prostatic hyperplasia Cervical stenosis of spinal canal Spinal surgery x2. Duodenal ulcer Dyslipidemia Gastroesophageal reflux disease Glaucoma Hypertension Iron deficiency anemia Narcolepsy Obstructive sleep apnea on CPAP Osteoarthritis Periodic limb movement disorder Surgical History Surgical History (Updated 07/21/23 @ 22:31 by Shaina Diaz PA-C) History of arthroscopy of right knee History of fusion of cervical spine History of lumbar discectomy History of lumbar fusion History of transurethral resection of prostate Family History Family History Father Hypertension Family history of lung cancer, Onset Age: 58 Mother Patient's mother is , Onset Age: 86 Family history of dementia Sibling Patient's brother is in good health Family history of alcoholism Family history of Alzheimer's disease Malignant neoplasm of prostate Family history of malignant neoplasm of thyroid Other No family history of cardiovascular disease Social History Social History (Updated 07/21/23 @ 22:32 by Shaina Diaz PA-C) Social History: Surrogate medical decision maker: Dr. Chu Shaw, sibling. Code status: Full code. Smoking status: Never smoker Alcohol intake: current Drinks per week: 42 Alcohol use details: 1.5 handle every 2 days. Substance use: never Substance use type: does not use Do You Feel Safe in your Home?: Yes Lack of Transportation: No Lack of Food: Never True Current Housing: I Have Housing Concerned About Future Housing: No Difficulty Paying Gas/Electric Bills: No Difficulty Paying for Meds: No Currently Unemployed: No Education: Bachelor's Degree
[2023-07-21 19:41] LABS: Iron 119 ug/dL (49-181)
[2023-07-21 19:42] LABS: Anion Gap 6 mmol/L (4-12); Blood Urea Nitrogen 11 mg/dL (9-20); Calcium 8.7 mg/dL (8.4-10.2); Carbon Dioxide 29 mmol/L (22-30); Chloride 86 mmol/L (98-107); Estimated CRCL calculation 90 ml/min; Estimated Glomerular Filt Rate > 60; Glucose 122 mg/dL (65-110); Magnesium 0.9 mg/dL (1.6-2.3); Potassium 3.6 mmol/L (3.4-5.0); Sodium 121 mmol/L (137-145)
[2023-07-21 19:50] LABS: Percent Iron Saturation 51 % (20-50)
[2023-07-21] MEDS: chlordiazePOXIDE (*CRX) 25 MG CAPSULE PO ×2 (20:16→23:44)
[2023-07-21 20:48] LABS: Folic Acid 7.5 ng/mL (2.76->20)
[2023-07-21 22:35] LABS: Creatinine Urine 23.6 mg/dL
[2023-07-21 22:36] LABS: Sodium Urine Random 92 meq/L
[2023-07-21] MEDS: TIMOLOL MALEATE 0.25% OP SOLN 5 ML BOTTLE 1 DROP EACH EYE (23:44)
[2023-07-22] VITALS (18 sets, daily range): BP systolic 99–128; BP diastolic 56–85; PULSE 69–130; RESP 16–26; TEMP 36.6–36.9; O2SAT 2–99
[2023-07-22 01:18] LABS: Sodium 123 mmol/L (137-145)
[2023-07-22] MEDS: IPRATROPIUM 0.5 MG/ALBUTEROL SULFATE 2.5 MG AMPUL.NEB 3 ML INHALATION ×3 (03:11→21:30)
[2023-07-22 05:12] LABS: Hematocrit 30.6 % (42.0-52.0); Hemoglobin 10.8 g/dL (14.0-18.0); Mean Corpuscular HGB Conc 35.3 g/dl (32-36); Mean Platelet Volume 9.2 fl (7.4-10.4); Platelet Count Result 193 k/mm3 (150-375); Red Cell Distribution Width 12.2 % (11.5-14.5); White Blood Count 8.2 K/mm3 (4.5-10.0)
[2023-07-22 05:24] LABS: Alanine Aminotransferase 35 U/L (6-50); Albumin Level 4.1 g/dL (3.5-5.1); Alkaline Phosphatase 64 U/L (38-126); Anion Gap 5 mmol/L (4-12); Aspartate Amino Transferase 58 U/L (17-59); Bilirubin,Total 1.9 mg/dL (0.2-1.3); Blood Urea Nitrogen 9 mg/dL (9-20); Carbon Dioxide 30 mmol/L (22-30); Chloride 89 mmol/L (98-107); Estimated CRCL calculation 79 ml/min; Estimated Glomerular Filt Rate > 60; Glucose 107 mg/dL (65-110); Magnesium 0.9 mg/dL (1.6-2.3); Potassium 3.8 mmol/L (3.4-5.0); Sodium 124 mmol/L (137-145)
--- NOTE | 2023-07-22 06:15 | PM.IMPN ---
Progress Note: A&P Assessment and Plan (1) Shortness of breath: Code(s): R06.02 - Shortness of breath Status: Acute Assessment and Plan: 07/22/23: Continue DuoNebs q.6 hour Lungs clear to auscultation Currently on room air He does not appear to be in any acute respiratory distress (2) Hyponatremia: Code(s): E87.1 - Hypo-osmolality and hyponatremia Status: Acute Assessment and Plan: 07/22/23: Sodium is 126 Hyponatremia likely due to alcohol abuse. Serum osmolarity, urine osmolarity, cortisol pending Urine random sodium 92 hold on IV fluids Seizure precautions Will check TSH as well Patient placed on fluid restriction (3) Alcohol abuse: Code(s): F10.10 - Alcohol abuse, uncomplicated Status: Acute Assessment and Plan: 07/22/23: Patient has history of alcohol abuse, patient drinks vodka on a regular basis Patient denies any history of withdrawal in the past. CIWA protocol ordered Continue Thiamine and folic acid Ativan ordered PRN Seizure precautions (4) Essential (primary) hypertension: Code(s): I10 - Essential (primary) hypertension Status: Acute Assessment and Plan: 07/22/23: Blood pressure ranging 128/85-170/107 Continue HCTZ and Benacar (5) Iron deficiency anemia: Code(s): D50.9 - Iron deficiency anemia, unspecified Status: Acute Assessment and Plan: 07/22/23: Hgb 10.8 Iron level 119, TIBC 235, Ferritin 377 Continue ferrous sulfate (6) Obstructive sleep apnea on CPAP: Code(s): G47.33 - Obstructive sleep apnea (adult) (pediatric) Status: Acute Assessment and Plan: 07/22/23: Currently on room air Bipap/cpap ordered for use at (7) Anxiety: Code(s): F41.9 - Anxiety disorder, unspecified Status: Acute Assessment and Plan: 07/22/23: Chlordiazepoxide restarted Time Spent With Patient Time with patient: 25 - 35 minutes Subjective Date/time seen: 07/22/23 06:15 Interval history: This is a 68 year male presented to the hospital on 07/21/2023 for evaluation of shortness of breath. Workup in the hospital included chest x-ray which shows atelectasis at the lung bases. Initial labs showed a hemoglobin of 10.7, sodium 122, chloride 87, magnesium 0.9, total bili 1.9, liver enzymes are normal, iron level 119, ferritin 377, total iron binding capacity 235. Urine osmolarity and serum osmolarity is pending, urine random sodium is 92. Respiratory panel was negative for influenza a and B, COVID, RSV. Patient given 1L NS, Duoneb, and [place] in the ED. On examination today patient is alert and oriented x3 lying in the bed. He denies he denies any fever, chills, nausea, vomiting, diarrhea, abdominal pain, chest pain, headache.. He endorses shortness of breath recently. Labs today show hemoglobin of 10.8, sodium is 126, chloride now 89, blood sugars ranging 107-122, magnesium 0.9, total bili is 1.9, liver enzymes are normal. Will start magnesium replacement. Review of Systems Review of Systems: All systems reviewed & are unremarkable except as noted in HPI and below Constitutional: Constitutional: Reports as per HPI and Reports no additional constitutional complaints Eyes: Eyes: Reports as per HPI and Reports no additional eye complaints ENT: Reports system reviewed and no additional complaints, except as documented and Reports as per HPI Cardiovascular: Cardiovascular: Reports as per HPI and Reports no additional cardiovascular complaints Respiratory: Respiratory: Reports as per HPI and Reports no additional respiratory complaints Gastrointestinal: Gastrointestinal: Reports as per HPI and Reports no additional gastrointestinal complaints Genitourinary: Genitourinary: Reports no additional male genitourinary complaints and Reports as per HPI Musculoskeletal: Musculoskeletal: Reports no additional musculoskeletal complaints and Reports as per HPI Integumentary/Breasts
[2023-07-22] MEDS: chlordiazePOXIDE (*CRX) 25 MG CAPSULE PO ×4 (06:18→23:24)
[2023-07-22 07:18] LABS: Urea Random Urine 148 MG/DL
[2023-07-22 07:49] LABS: Sodium 126 mmol/L (137-145)
[2023-07-22] MEDS: FOLIC ACID 1 MG TABLET PO (09:01)
[2023-07-22] MEDS: THERAPEUTIC MULTIVITAMINS/MINERALS TAB (*BKC) 1 TABLET PO (09:01)
[2023-07-22] MEDS: OLMESARTAN MEDOXOMIL 20 MG TABLET PO (09:01)
[2023-07-22] MEDS: FERROUS SULFATE 325 MG TABLET DR PO ×2 (09:02→17:57)
[2023-07-22] MEDS: TIMOLOL MALEATE 0.25% OP SOLN 5 ML BOTTLE 1 DROP EACH EYE ×2 (09:02→21:07)
[2023-07-22] MEDS: THIAMINE HCL 100 MG TABLET PO (09:02)
[2023-07-22] MEDS: MAGNESIUM SULF 4 GM/WATER100ML 4 GM/100 ML BAG IVPB (09:02)
[2023-07-22 10:22] LABS: Cortisol Random 7.13 ug/dL
[2023-07-22 12:50] LABS: Sodium 126 mmol/L (137-145)
--- NOTE | 2023-07-22 13:35 | PHAR ---
HOME MED Dextroamphetamine Sulfate 10 mg tablet; TAKE 2 TABLETS BY MOUTH TWICE DAILY. 9 TABLETS IN BOTTLE THAT WAS SENT TO PHARMACY. VERIFIED BY PHARMACY.
[2023-07-22 17:12] LABS: Glucose Point of Care 204 mg/dl (65-105)
[2023-07-22 17:19] LABS: Sodium 128 mmol/L (137-145)
[2023-07-22 18:53] LABS: IFOB Positive Control Positive; Immunochemical Fecal Occult Bl Positive (N)
[2023-07-22 19:06] LABS: Glucose Point of Care 176 mg/dl (65-105)
[2023-07-22 20:51] LABS: Sodium 126 mmol/L (137-145)
[2023-07-22 23:37] LABS: Glucose Point of Care 129 mg/dl (65-105)
[2023-07-23] VITALS (22 sets, daily range): BP systolic 82–120; BP diastolic 40–92; PULSE 95–124; RESP 16–26; TEMP 36.5–36.8; O2SAT 97–99
--- NOTE | 2023-07-23 | ECHO_ITS ---
Patient Info Name: Jose Armando Shaw Age: 68 years : 1955 Gender: Male Ht: 70 in Wt: 197 lbs BSA: 2.12 m2 HR: 107 bpm BP: 120 / 92 mmHg Heart Rhythm: Tachycardia, Sinus Rhythm Technical Quality: Fair Exam Date: 07/23/2023 10:33 AM Exam Location: Echo Lab Patient Status: Inpatient Admit Date: 07/22/2023 Staff Ordering Physician: Shaina Diaz PA-C [employer] Programmer: Deidre Villalta RDCS Attending Provider: Willie Campo MD Referring Physician: Emily JUAREZ; Exam Type: CA echo dop color flow w con Study Info Indications R06.02 - Shortness of breath Complete two-dimensional, color flow and Doppler transthoracic echocardiogram is performed with contrast to opacify the left ventricle and to improve the deliniation of the left ventricle endocardial borders. Contrast/Agitated Saline Contrast/Ag. Saline: Definity Amount: 2.00 ml Administered By: Deidre Villalta RDCS Existing IV Access: Yes IV Access Condition: patent with no signs of infiltration Summary 1. Technically challenging echocardiogram, definity contrast injected to improve visualization. 2. Normal LV size and hyperdynamic appearing systolic function suggesting a state of increased on inotropic stimulation. 3. Grade 1 diastolic noncompliance. 4. No valvular dysfunction identified. Left Ventricle Left ventricular chamber dimension is normal. Left ventricular systolic function is hyperdynamic, estimated at >70%. The left ventricular diastolic function is grade I diastolic dysfunction. Right Ventricle Right ventricular chamber dimension is normal. Left Atria Left atrial chamber dimension is normal. Right Atria Right atrial chamber dimension is normal. Aortic Valve The aortic valve is normal. Pulmonic Valve The pulmonic valve is not well visualized. Mitral Valve The mitral valve has normal leaflets. Tricuspid Valve The tricuspid valve leaflets are not well visualized. Pericardium/Pleural The pericardium appears normal. Aorta The aortic root size at the sinus of Valsalva is normal. Left Ventricular Outflow Tract Name Value Normal LVOT 2D LVOT Diameter 1.98 cm LVOT Doppler LVOT Peak Gradient 6 mmHg LVOT Mean Gradient 3 mmHg LVOT VTI 16.90 cm LVOT VTI/AV VTI Ratio 1.06 LVOT Stroke Volume 52.02 ml LVOT CO 5.72 l/min LVOT CI 2.70 L/min/m2 Pulmonic Valve Name Value Normal RVOT Doppler RVOT Peak Gradient 3 mmHg PV Doppler PV Peak Gradient 4 mmHg Mitral Valve Name Value Normal
[2023-07-23] MEDS: IPRATROPIUM 0.5 MG/ALBUTEROL SULFATE 2.5 MG AMPUL.NEB 3 ML INHALATION ×4 (02:30→20:51)
[2023-07-23 05:44] LABS: Basophils Percent Auto 0.7 % (0.2-1.2); Eosinophils Absolute Auto 0.1 K/mm3 (0-0.3); Eosinophils Percent Auto 1.8 % (0-4.4); Hemoglobin 10.2 g/dL (14.0-18.0); Immature Granulocyte Absolute 0.02 K/mm3 (0.00-0.031); Immature Granulocyte Percent A 0.4 % (0-0.5); Lymphocytes Absolute Auto 0.77 K/mm3 (0.9-3.2); Lymphocytes Percent Auto 13.7 % (18.3-44.2); Mean Corpuscular Hemoglobin 35.5 pg (26-34); Mean Corpuscular Volume 104.5 fl (80-100); Mean Platelet Volume 9.6 fl (7.4-10.4); Monocytes Absolute Auto 0.9 K/mm3 (0.1-0.6); Monocytes Percent Auto 15.1 % (2.6-8.5); Neutrophils Absolute Auto 3.8 K/mm3 (1.3-6.7); Neutrophils Percent Auto 68.3 % (45.5-73.1); Platelet Count Result 197 k/mm3 (150-375); Red Blood Count 2.87 M/mm3 (4.6-6.20); Red Cell Distribution Width 12.3 % (11.5-14.5); White Blood Count 5.6 K/mm3 (4.5-10.0)
[2023-07-23 05:51] LABS: Alanine Aminotransferase 69 U/L (6-50); Albumin Level 3.9 g/dL (3.5-5.1); Alkaline Phosphatase 73 U/L (38-126); Anion Gap 3 mmol/L (4-12); Aspartate Amino Transferase 108 U/L (17-59); Blood Urea Nitrogen 14 mg/dL (9-20); Calcium 9.1 mg/dL (8.4-10.2); Carbon Dioxide 32 mmol/L (22-30); Chloride 94 mmol/L (98-107); Estimated CRCL calculation 71 ml/min; Estimated Glomerular Filt Rate > 60; Glucose 94 mg/dL (65-110); Magnesium 1.9 mg/dL (1.6-2.3); Potassium 3.3 mmol/L (3.4-5.0); Sodium 129 mmol/L (137-145)
[2023-07-23 05:55] LABS: Glucose Point of Care 93 mg/dl (65-105)
[2023-07-23] MEDS: chlordiazePOXIDE (*CRX) 25 MG CAPSULE PO ×4 (06:00→23:55)
--- NOTE | 2023-07-23 07:47 | P.PNIM_ITS ---
Progress Note: A&P Assessment and Plan (1) Hyponatremia: Code(s): E87.1 - Hypo-osmolality and hyponatremia Status: Acute Assessment and Plan: 07/22/23: * Sodium is 126 * Hyponatremia likely due to alcohol abuse. * Serum osmolarity, urine osmolarity, cortisol pending * Urine random sodium 92 * hold on IV fluids * Seizure precautions * Will check TSH as well * Patient placed on fluid restriction 07/23/23: * Sodium is 129 today * Serum and urine osmolarity are pending * Cortisol level was normal at 7.13 * TSH at 1.640 * Continue with fluid restriction * ? Tea and toast as patient states that he has not been eating and drinking like he normally did (2) Alcohol abuse: Code(s): F10.10 - Alcohol abuse, uncomplicated Status: Acute Assessment and Plan: 07/22/23: * Patient has history of alcohol abuse, patient drinks vodka on a regular basis * Patient denies any history of withdrawal in the past. * CIWA protocol ordered * Continue Thiamine and folic acid * Ativan ordered PRN * Seizure precautions 07/23/23: * Continue with current treatment plan (3) Shortness of breath: Code(s): R06.02 - Shortness of breath Status: Acute Assessment and Plan: 07/22/23: * Continue DuoNebs q.6 hour * Lungs clear to auscultation * Currently on room air * He does not appear to be in any acute respiratory distress 07/23/23: * Chest x-ray negative * No change to current treatment plan (4) Essential (primary) hypertension: Code(s): I10 - Essential (primary) hypertension Status: Chronic Assessment and Plan: 07/22/23: * Blood pressure ranging 128/85-170/107 * Continue HCTZ and Benacar 07/23/23: * Blood pressure ranging 99/56 to 120/92 * Continue with current treatment plan (5) Iron deficiency anemia: Code(s): D50.9 - Iron deficiency anemia, unspecified Status: Chronic Assessment and Plan: 07/22/23: * Hgb 10.8 * Iron level 119, TIBC 235, Ferritin 377 * Continue ferrous sulfate 07/23/23: * No change to current treatment plan (6) Obstructive sleep apnea on CPAP: Code(s): G47.33 - Obstructive sleep apnea (adult) (pediatric) Status: Chronic Assessment and Plan: 07/22/23: * Currently on room air * Bipap/cpap ordered for use at 07/23/23: * No change to current treatment plan (7) Anxiety: Code(s): F41.9 - Anxiety disorder, unspecified Status: Chronic Assessment and Plan: 07/22/23: * Chlordiazepoxide restarted 07/23/23: * No change to current treatment plan Time Spent With Patient Time with patient: Greater than 35 minutes Subjective Date/time seen: 07/23/23 07:47 Interval history: 07/22/23: This is a 68 year male presented to the hospital on 07/21/2023 for evaluation of shortness of breath. Workup in the hospital included chest x-ray which shows atelectasis at the lung bases. Initial labs showed a hemoglobin of 10.7, sodium 122, chloride 87, magnesium 0.9, total bili 1.9, liver enzymes are normal, iron level 119, ferritin 377, total iron binding capacity 235. Urine osmolarity and serum osmolarity is pending, urine random sodium is 92. Respiratory panel was negative for influenza a and B, COVID, RSV. Patient given 1L NS, Duoneb, and [place] in the ED. On examination today patient is alert and oriented x3 lying in the bed. He denies he denies any fever, chills, nausea, vomiting, diarrhea, abdominal pain, chest pain, headache.. He endorses shortness of breath recently
--- NOTE | 2023-07-23 07:47 | PM.IMPN ---
Progress Note: A&P Assessment and Plan (1) Hyponatremia: Code(s): E87.1 - Hypo-osmolality and hyponatremia Status: Acute Assessment and Plan: 07/22/23: Sodium is 126 Hyponatremia likely due to alcohol abuse. Serum osmolarity, urine osmolarity, cortisol pending Urine random sodium 92 hold on IV fluids Seizure precautions Will check TSH as well Patient placed on fluid restriction 07/23/23: Sodium is 129 today Serum and urine osmolarity are pending Cortisol level was normal at 7.13 TSH at 1.640 Continue with fluid restriction ? Tea and toast as patient states that he has not been eating and drinking like he normally did (2) Alcohol abuse: Code(s): F10.10 - Alcohol abuse, uncomplicated Status: Acute Assessment and Plan: 07/22/23: Patient has history of alcohol abuse, patient drinks vodka on a regular basis Patient denies any history of withdrawal in the past. [place] protocol ordered Continue Thiamine and folic acid Ativan ordered PRN Seizure precautions 07/23/23: Continue with current treatment plan (3) Shortness of breath: Code(s): R06.02 - Shortness of breath Status: Acute Assessment and Plan: 07/22/23: Continue DuoNebs q.6 hour Lungs clear to auscultation Currently on room air He does not appear to be in any acute respiratory distress 07/23/23: Chest x-ray negative No change to current treatment plan (4) Essential (primary) hypertension: Code(s): I10 - Essential (primary) hypertension Status: Chronic Assessment and Plan: 07/22/23: Blood pressure ranging 128/85-170/107 Continue HCTZ and Benacar 07/23/23: Blood pressure ranging 99/56 to 120/92 Continue with current treatment plan (5) Iron deficiency anemia: Code(s): D50.9 - Iron deficiency anemia, unspecified Status: Chronic Assessment and Plan: 07/22/23: Hgb 10.8 Iron level 119, TIBC 235, Ferritin 377 Continue ferrous sulfate 07/23/23: No change to current treatment plan (6) Obstructive sleep apnea on CPAP: Code(s): G47.33 - Obstructive sleep apnea (adult) (pediatric) Status: Chronic Assessment and Plan: 07/22/23: Currently on room air Bipap/cpap ordered for use at 07/23/23: No change to current treatment plan (7) Anxiety: Code(s): F41.9 - Anxiety disorder, unspecified Status: Chronic Assessment and Plan: 07/22/23: Chlordiazepoxide restarted 07/23/23: No change to current treatment plan Time Spent With Patient Time with patient: Greater than 35 minutes Subjective Date/time seen: 07/23/23 07:47 Interval history: 07/22/23: This is a 68 year male presented to the hospital on 07/21/2023 for evaluation of shortness of breath. Workup in the hospital included chest x-ray which shows atelectasis at the lung bases. Initial labs showed a hemoglobin of 10.7, sodium 122, chloride 87, magnesium 0.9, total bili 1.9, liver enzymes are normal, iron level 119, ferritin 377, total iron binding capacity 235. Urine osmolarity and serum osmolarity is pending, urine random sodium is 92. Respiratory panel was negative for influenza a and B, COVID, RSV. Patient given 1L NS, Duoneb, and [place] in the ED. On examination today patient is alert and oriented x3 lying in the bed. He denies he denies any fever, chills, nausea, vomiting, diarrhea, abdominal pain, chest pain, headache.. He endorses shortness of breath recently. Labs today show hemoglobin of 10.8, sodium is 126, chloride now 89, blood sugars ranging 107-122, magnesium 0.9, total bili is 1.9, liver enzymes are normal. Will start magnesium replacement. 07/23/23: Patient denies any new complaints today. He does state that he has not been eating and drinking as well as he normally has been in the past which could be the cause of the hyponatremia. Labs today show a hemoglobin of 10.2 sodium up to 129, potassium 3.3, chloride 94, liver enzymes are elevated w
[2023-07-23] MEDS: THERAPEUTIC MULTIVITAMINS/MINERALS TAB (*BKC) 1 TABLET PO (08:46)
[2023-07-23] MEDS: POTASSIUM CHLORIDE 20 MEQ ER TABLET 40 MEQ PO (08:47)
[2023-07-23] MEDS: OLMESARTAN MEDOXOMIL 20 MG TABLET PO (08:47)
[2023-07-23] MEDS: FOLIC ACID 1 MG TABLET PO (08:47)
[2023-07-23] MEDS: TIMOLOL MALEATE 0.25% OP SOLN 5 ML BOTTLE 1 DROP EACH EYE ×2 (08:47→20:31)
[2023-07-23] MEDS: THIAMINE HCL 100 MG TABLET PO (08:47)
[2023-07-23] MEDS: FERROUS SULFATE 325 MG TABLET DR PO ×2 (08:47→16:25)
[2023-07-23] MEDS: PERFLUTREN LIPID MICROSPHERES 1.5 ML VIAL DILUTED TO 10 ML TOTAL VOLUME IV PUSH (11:01)
[2023-07-23 12:15] LABS: Glucose Point of Care 135 mg/dl (65-105)
--- NOTE | 2023-07-23 12:33 | IVDEFINITY ---
Prior to administration of IV Definity the patient was educated on the risks and benefits of the imaging enhancing agent including potential adverse side effects. The patient verbalized understanding. Allergies were verified. No exclusion criteria were identified and at least one of the following inclusion criteria were met: 1) physician request, 2) patient technically difficult to image (per the [place] [employer] guidelines of two or more segments not discernable within the apical view), or 3) questionable left ventricular function. ?
[2023-07-23 17:16] LABS: Glucose Point of Care 103 mg/dl (65-105)
--- NOTE | 2023-07-23 21:14 | PC.NURSE ---
Patient denies symptoms of CP, lightheadeness, dizziness. Denies numbness, tingling. RN instructed to continue to monitor patient.
[2023-07-23] MEDS: SODIUM CHLORIDE 0.9% IV 500 ML IV CONT (23:55)
[2023-07-24] VITALS (12 sets, daily range): BP systolic 95–104; BP diastolic 54–76; PULSE 86–120; RESP 16–21; TEMP 36.3–37; O2SAT 96–100
[2023-07-24 01:15] LABS: Glucose Point of Care 126 mg/dl (65-105)
[2023-07-24 05:20] LABS: Basophils Percent Auto 0.6 % (0.2-1.2); Eosinophils Absolute Auto 0.1 K/mm3 (0-0.3); Eosinophils Percent Auto 1.7 % (0-4.4); Hematocrit 29.9 % (42.0-52.0); Immature Granulocyte Absolute 0.06 K/mm3 (0.00-0.031); Immature Granulocyte Percent A 0.9 % (0-0.5); Lymphocytes Absolute Auto 0.84 K/mm3 (0.9-3.2); Lymphocytes Percent Auto 13.3 % (18.3-44.2); Mean Corpuscular HGB Conc 33.4 g/dl (32-36); Mean Corpuscular Hemoglobin 36.1 pg (26-34); Mean Corpuscular Volume 107.9 fl (80-100); Mean Platelet Volume 9.8 fl (7.4-10.4); Monocytes Absolute Auto 1.3 K/mm3 (0.1-0.6); Monocytes Percent Auto 20.1 % (2.6-8.5); Neutrophils Percent Auto 63.4 % (45.5-73.1); Platelet Count Result 184 k/mm3 (150-375); Red Blood Count 2.77 M/mm3 (4.6-6.20); Red Cell Distribution Width 12.9 % (11.5-14.5); White Blood Count 6.3 K/mm3 (4.5-10.0)
[2023-07-24 05:30] LABS: Alanine Aminotransferase 78 U/L (6-50); Albumin Level 3.8 g/dL (3.5-5.1); Alkaline Phosphatase 67 U/L (38-126); Anion Gap 4 mmol/L (4-12); Aspartate Amino Transferase 106 U/L (17-59); Bilirubin,Total 0.7 mg/dL (0.2-1.3); Blood Urea Nitrogen 21 mg/dL (9-20); Calcium 9.5 mg/dL (8.4-10.2); Carbon Dioxide 29 mmol/L (22-30); Chloride 98 mmol/L (98-107); Estimated CRCL calculation 59 ml/min; Estimated Glomerular Filt Rate > 60; Glucose 96 mg/dL (65-110); Magnesium 1.8 mg/dL (1.6-2.3); Sodium 131 mmol/L (137-145)
[2023-07-24 05:45] LABS: Glucose Point of Care 90 mg/dl (65-105)
[2023-07-24 05:54] LABS: Anisocytosis 1+; Macrocytosis 1+ (NORMAL); Platelet Estimate Adequate (Adequate); Stomatocytes 1+
[2023-07-24 05:55] LABS: Schistocytes None Seen
[2023-07-24] MEDS: chlordiazePOXIDE (*CRX) 25 MG CAPSULE PO ×3 (06:16→17:38)
[2023-07-24] MEDS: IPRATROPIUM 0.5 MG/ALBUTEROL SULFATE 2.5 MG AMPUL.NEB 3 ML INHALATION ×3 (07:15→20:19)
[2023-07-24] MEDS: TIMOLOL MALEATE 0.25% OP SOLN 5 ML BOTTLE 1 DROP EACH EYE ×2 (08:36→21:08)
[2023-07-24] MEDS: FERROUS SULFATE 325 MG TABLET DR PO (08:36)
[2023-07-24] MEDS: FOLIC ACID 1 MG TABLET PO (08:36)
[2023-07-24] MEDS: THERAPEUTIC MULTIVITAMINS/MINERALS TAB (*BKC) 1 TABLET PO (08:37)
[2023-07-24] MEDS: THIAMINE HCL 100 MG TABLET PO (08:37)
[2023-07-24] MEDS: OLMESARTAN MEDOXOMIL 20 MG TABLET PO (08:37)
--- NOTE | 2023-07-24 10:25 | PM.DS ---
DS: Admitting Diagnosis Discharge Date 07/24/23 Admitting Diagnosis Shortness of breath Hyponatremia Alcohol abuse Essential hypertension Iron deficiency anemia Obstructive sleep apnea on CPAP Narcolepsy DS: Discharge Diagnosis Discharge Diagnosis (1) Hyponatremia: Code(s): E87.1 - Hypo-osmolality and hyponatremia Status: Acute (2) Alcohol abuse: Code(s): F10.10 - Alcohol abuse, uncomplicated Status: Acute (3) Shortness of breath: Code(s): R06.02 - Shortness of breath Status: Acute (4) Essential (primary) hypertension: Code(s): I10 - Essential (primary) hypertension Status: Chronic (5) Iron deficiency anemia: Code(s): D50.9 - Iron deficiency anemia, unspecified Status: Chronic (6) Obstructive sleep apnea on CPAP: Code(s): G47.33 - Obstructive sleep apnea (adult) (pediatric) Status: Chronic (7) Anxiety: Code(s): F41.9 - Anxiety disorder, unspecified Status: Chronic DS: Summary Hospital Course Reason for hospitalization: Shortness of breath Hyponatremia Alcohol abuse Essential hypertension Iron deficiency anemia Obstructive sleep apnea on CPAP Narcolepsy Hospital Course: Interval history: 07/22/23: This is a 68 year male presented to the hospital on 07/21/2023 for evaluation of shortness of breath.? Workup in the hospital included chest x-ray which shows atelectasis at the lung bases.? Initial labs showed a hemoglobin of 10.7, sodium 122, chloride 87, magnesium 0.9, total bili 1.9, liver enzymes are normal, iron level 119, ferritin 377, total iron binding capacity 235.? Urine osmolarity and serum osmolarity is pending, urine random sodium is 92.? Respiratory panel was negative for influenza a and B, COVID, RSV. Patient given 1L NS, Duoneb, and [place] in the ED. On examination today patient is alert and oriented x3 lying in the bed.? He denies he denies any fever, chills, nausea, vomiting, diarrhea, abdominal pain, chest pain, headache..? He endorses shortness of breath recently.? Labs today show hemoglobin of 10.8, sodium is 126, chloride now 89, blood sugars ranging 107-122, magnesium 0.9, total bili is 1.9, liver enzymes are normal.? Will start magnesium replacement. 07/23/23: Patient denies any new complaints today.? He does state that he has not been eating and drinking as well as he normally has been in the past which could be the cause of the hyponatremia.? Labs today show a hemoglobin of 10.2 sodium up to 129, potassium 3.3, chloride 94, liver enzymes are elevated with an AST of 108, ALT 69, TSH is 1.64.? Urine and serum osmolarity are still pending.? Continue with fluid restriction at this time.? Chest x-ray was negative today. 07/24/23: Patient denies any new complaints today. His sodium level is still trending up and is 131 this morning. His hyponatremia can be contributed to his decrease intake of food and fluid coupled with the use of hydrochlorothiazide. His hydrochlorothiazide has been placed on hold and we are seeing an upward trend now on his sodium. Patient is stable for discharge at this time. He will need to follow up in 1 week with his primary care physician and will also need to get his labs recheck to check his sodium level urine about a week. He was instructed to stop the hydrochlorothiazide at this time. Final diagnosis: Hyponatremia, dehydration, alcohol abuse Status at Discharge Cognitive/behavioral status at discharge: Alert oriented x4 Functional status at discharge: uses cane/walker Overall status at discharge: patient is progressing back to baseline Time Spent with Patient Time attestation: Total time spent providing and/or coordinating discharge services: Time spent: Greater than 30 minutes Exam Narrative: General: In no acute distress, well nourished Head: atraumatic, no encephalopathy Eyes: EOMI, PERRLA, sclera clear ENT: moist mucous membranes, nasal passages clear Neck: supple, no JVD, no adenopat
[2023-07-24 11:51] LABS: Glucose Point of Care 126 mg/dl (65-105)
--- NOTE | 2023-07-24 15:31 | WPDGICN ---
Assessment and Plan Assessment and plan (1) Acute on chronic anemia: Code(s): D64.9 - Anemia, unspecified Status: Acute Assessment and Plan: no overt gib but + FOBT will repeat EGD (previous h/o DU with + H pylori) and colonoscopy tomorrow, he is agreeable (2) Occult blood in stools: Code(s): R19.5 - Other fecal abnormalities Status: Acute Assessment and Plan: ? perianal but will assess with colonoscopy (3) Hyponatremia: Code(s): E87.1 - Hypo-osmolality and hyponatremia Status: Acute Assessment and Plan: this has been treated and improved (4) Alcohol abuse: Code(s): F10.10 - Alcohol abuse, uncomplicated Status: Acute Assessment and Plan: thiamine, abstinence (5) Duodenal ulcer: Code(s): K26.9 - Duodenal ulcer, unspecified as acute or chronic, without hemorrhage or perforation Status: Acute Assessment and Plan: on ppi egd in am (6) Shortness of breath: Code(s): R06.02 - Shortness of breath Status: Acute GI Consult Note Consult date/time: 07/24/23 15:31 Reason for consult: acute chronic anemia, h/o H pylori, FOBT + HPI: Jose Armando Shaw is a 68 year old male with history of alcohol abuse, alcohol withdrawal syndrome, hypertension, cervical stenosis status post fusion, obstructive sleep apnea, narcolepsy, and chronic anemia with hgb ~ 10. Also had duodenal ulcer with + H pylori 2021 that was treated, also had colonoscopy. He was admitted few days with progressive shortness of breath. He also had some cough and labs showed low Na 122- this has been monitored with slowly improvement. WBC count of 6.5, hemoglobin 10, MCV 100.7, sodium 122, potassium 3.6, chloride 86, BUN 11, creatinine 0.70, glucose 131, lactic acid 2.1, AST 71, proBNP 435. Chest x-ray showed relatively high position of diaphragm with associated atelectasis at the lung bases. No overt GIB but + FOBT. Review of Systems Constitutional: Constitutional: Denies headache(s) and Reports weakness Eyes: Eyes: Denies blurry vision ENT: Reports Normal hearing present, Denies headache(s) and Denies neck pain Cardiovascular: Cardiovascular: Denies chest pain and Denies dyspnea Respiratory: Respiratory: Reports dyspnea Gastrointestinal: Gastrointestinal: Reports no additional gastrointestinal complaints Genitourinary: Genitourinary: Denies dysuria Musculoskeletal: Musculoskeletal: Denies neck pain Integumentary/Breasts: Skin/Breast: Denies dry skin Neurologic: Reports Normal hearing present and Denies headache(s) Psychiatric: Psychiatric: Denies behavioral changes Endocrine: Endocrine: Denies change in body appearance Hematologic/Lymphatic: Hematologic/Lymphatic: Denies easy bleeding Allergic/Immunologic: Allergic/Immunologic: Denies urticaria PMFSH Past Medical History Medical History (Updated 07/24/23 @ 15:35 by Emil Velazquez MD) Acute on chronic anemia Alcohol abuse Benign prostatic hyperplasia Cervical stenosis of spinal canal Spinal surgery x2. Duodenal ulcer Dyslipidemia Gastroesophageal reflux disease Glaucoma Hypertension Iron deficiency anemia Narcolepsy Obstructive sleep apnea on CPAP Occult blood in stools Osteoarthritis Periodic limb movement disorder Surgical History Surgical History (Updated 07/21/23 @ 22:31 by Shaina Diaz PA-C) History of arthroscopy of right knee History of fusion of cervical spine History of lumbar discectomy History of lumbar fusion History of transurethral resection of prostate Family History Family History Father Hypertension Family history of lung cancer, Onset Age: 58 Mother Patient's mother is , Onset Age: 86 Family history of dementia Sibling Patient's brother is in good health Family history of alcoholism Family history of Alzheimer's disease Malignant neoplasm of prostate Famil
[2023-07-24 17:30] LABS: Glucose Point of Care 115 mg/dl (65-105)
[2023-07-24] MEDS: polyethylene glycoL 3350 238 GM BOTTLE PO (17:37)
[2023-07-24] MEDS: BISACODYL 5 MG TABLET EC 20 MG PO (17:38)
[2023-07-24 22:04] LABS: Glucose Point of Care 109 mg/dl (65-105)
[2023-07-25] VITALS (17 sets, daily range): BP systolic 82–110; BP diastolic 58–75; PULSE 74–120; RESP 18–110; TEMP 35.7–37.1; O2SAT 94–100
[2023-07-25] MEDS: chlordiazePOXIDE (*CRX) 25 MG CAPSULE PO ×4 (00:03→23:56)
[2023-07-25 00:24] LABS: Glucose Point of Care 89 mg/dl (65-105)
[2023-07-25] MEDS: IPRATROPIUM 0.5 MG/ALBUTEROL SULFATE 2.5 MG AMPUL.NEB 3 ML INHALATION ×3 (02:01→20:45)
[2023-07-25 05:06] LABS: Basophils Absolute Auto 0.1 K/mm3 (0.0-0.1); Basophils Percent Auto 0.9 % (0.2-1.2); Eosinophils Absolute Auto 0.1 K/mm3 (0-0.3); Eosinophils Percent Auto 2.2 % (0-4.4); Hematocrit 33.1 % (42.0-52.0); Hemoglobin 10.9 g/dL (14.0-18.0); Immature Granulocyte Absolute 0.07 K/mm3 (0.00-0.031); Immature Granulocyte Percent A 1.2 % (0-0.5); Lymphocytes Absolute Auto 0.84 K/mm3 (0.9-3.2); Lymphocytes Percent Auto 14.5 % (18.3-44.2); Mean Corpuscular HGB Conc 32.9 g/dl (32-36); Mean Corpuscular Hemoglobin 35.6 pg (26-34); Mean Corpuscular Volume 108.2 fl (80-100); Mean Platelet Volume 9.7 fl (7.4-10.4); Monocytes Absolute Auto 0.8 K/mm3 (0.1-0.6); Monocytes Percent Auto 13.8 % (2.6-8.5); Neutrophils Absolute Auto 3.9 K/mm3 (1.3-6.7); Neutrophils Percent Auto 67.4 % (45.5-73.1); Platelet Count Result 203 k/mm3 (150-375); Red Blood Count 3.06 M/mm3 (4.6-6.20); Red Cell Distribution Width 13.1 % (11.5-14.5); White Blood Count 5.8 K/mm3 (4.5-10.0)
[2023-07-25 05:21] LABS: Alanine Aminotransferase 72 U/L (6-50); Albumin Level 4.3 g/dL (3.5-5.1); Alkaline Phosphatase 69 U/L (38-126); Anion Gap 7 mmol/L (4-12); Aspartate Amino Transferase 76 U/L (17-59); Bilirubin,Total 0.8 mg/dL (0.2-1.3); Blood Urea Nitrogen 21 mg/dL (9-20); Calcium 9.7 mg/dL (8.4-10.2); Carbon Dioxide 27 mmol/L (22-30); Chloride 100 mmol/L (98-107); Estimated CRCL calculation 71 ml/min; Estimated Glomerular Filt Rate > 60; Glucose 101 mg/dL (65-110); Magnesium 1.8 mg/dL (1.6-2.3); Potassium 4.1 mmol/L (3.4-5.0); Sodium 134 mmol/L (137-145)
[2023-07-25 05:49] LABS: Hypochromasia 1+; Platelet Estimate Adequate (Adequate)
[2023-07-25 05:50] LABS: Schistocytes None Seen
[2023-07-25 06:11] LABS: Glucose Point of Care 90 mg/dl (65-105)
[2023-07-25] MEDS: MAGNESIUM CITRATE 300 ML BTL PO (06:13)
--- NOTE | 2023-07-25 08:23 | P.PNIM_ITS ---
Progress Note: A&P Assessment and Plan (1) Hyponatremia: Code(s): E87.1 - Hypo-osmolality and hyponatremia Status: Acute Assessment and Plan: 07/22/23: * Sodium is 126 * Hyponatremia likely due to alcohol abuse. * Serum osmolarity, urine osmolarity, cortisol pending * Urine random sodium 92 * hold on IV fluids * Seizure precautions * Will check TSH as well * Patient placed on fluid restriction 07/23/23: * Sodium is 129 today * Serum and urine osmolarity are pending * Cortisol level was normal at 7.13 * TSH at 1.640 * Continue with fluid restriction * ? Tea and toast as patient states that he has not been eating and drinking like he normally did 07/25/23: * Sodium today is 134 * Serum and urine osmolarity are still pending * Hydrochlorothiazide hold (2) Alcohol abuse: Code(s): F10.10 - Alcohol abuse, uncomplicated Status: Acute Assessment and Plan: 07/22/23: * Patient has history of alcohol abuse, patient drinks vodka on a regular basis * Patient denies any history of withdrawal in the past. * CIWA protocol ordered * Continue Thiamine and folic acid * Ativan ordered PRN * Seizure precautions 07/23/23: * Continue with current treatment plan (3) Shortness of breath: Code(s): R06.02 - Shortness of breath Status: Acute Assessment and Plan: 07/22/23: * Continue DuoNebs q.6 hour * Lungs clear to auscultation * Currently on room air * He does not appear to be in any acute respiratory distress 07/23/23: * Chest x-ray negative * No change to current treatment plan 07/24/23: * Patient still complaining of shortness of breath, he was noted to have heart rate in 110-120 on the monitor. D-dimer was slightly elevated, CTA of chest was negative for PE. His shortness of breath is likely due to his chronic anemia. Continue with supportive measures * Venous Dopplers were negative for DVT this admission * Chest x-ray was also negative * Patient is currently room air, no acute respiratory distress seen, use of accessory muscles (4) Essential (primary) hypertension: Code(s): I10 - Essential (primary) hypertension Status: Chronic Assessment and Plan: 07/22/23: * Blood pressure ranging 128/85-170/107 * Continue HCTZ and Benacar 07/23/23: * Blood pressure ranging 99/56 to 120/92 * Continue with current treatment plan 07/24/23: * No change to current treatment (5) Iron deficiency anemia: Code(s): D50.9 - Iron deficiency anemia, unspecified Status: Chronic Assessment and Plan: 07/22/23: * Hgb 10.8 * Iron level 119, TIBC 235, Ferritin 377 * Continue ferrous sulfate 07/23/23: * No change to current treatment plan 07/25/23: * Brother concerned that patient may have a GI bleed as his fecal occult stool was positive * Hemoglobin has been stable over the past 5 days * Shortness of breath is likely related to his anemia * Continue ferrous sulfate * GI consulted and will plan to take patient for an EGD tomorrow (6) Obstructive sleep apnea on CPAP: Code(s): G47.33 - Obstructive sleep apnea (adult) (pediatric) Status: Chronic Assessment and Plan: 07/22/23: * Currently on room air * Bipap/cpap ordered for use at 07/23/23: * No change to current treatment plan (7) Anxiety: Code(s): F41.9 - Anxiety disorder, unspecified Status: Chronic Assessment and Plan: 07/22/23: * Chlordiazepoxide restarted 07/23/23: * No change to cur
--- NOTE | 2023-07-25 08:23 | PM.IMPN ---
Progress Note: A&P Assessment and Plan (1) Hyponatremia: Code(s): E87.1 - Hypo-osmolality and hyponatremia Status: Acute Assessment and Plan: 07/22/23: Sodium is 126 Hyponatremia likely due to alcohol abuse. Serum osmolarity, urine osmolarity, cortisol pending Urine random sodium 92 hold on IV fluids Seizure precautions Will check TSH as well Patient placed on fluid restriction 07/23/23: Sodium is 129 today Serum and urine osmolarity are pending Cortisol level was normal at 7.13 TSH at 1.640 Continue with fluid restriction ? Tea and toast as patient states that he has not been eating and drinking like he normally did 07/25/23: Sodium today is 134 Serum and urine osmolarity are still pending Hydrochlorothiazide hold (2) Alcohol abuse: Code(s): F10.10 - Alcohol abuse, uncomplicated Status: Acute Assessment and Plan: 07/22/23: Patient has history of alcohol abuse, patient drinks vodka on a regular basis Patient denies any history of withdrawal in the past. CIWA protocol ordered Continue Thiamine and folic acid Ativan ordered PRN Seizure precautions 07/23/23: Continue with current treatment plan (3) Shortness of breath: Code(s): R06.02 - Shortness of breath Status: Acute Assessment and Plan: 07/22/23: Continue DuoNebs q.6 hour Lungs clear to auscultation Currently on room air He does not appear to be in any acute respiratory distress 07/23/23: Chest x-ray negative No change to current treatment plan 07/24/23: Patient still complaining of shortness of breath, he was noted to have heart rate in 110-120 on the monitor. D-dimer was slightly elevated, CTA of chest was negative for PE. His shortness of breath is likely due to his chronic anemia. Continue with supportive measures Venous Dopplers were negative for DVT this admission Chest x-ray was also negative Patient is currently room air, no acute respiratory distress seen, use of accessory muscles (4) Essential (primary) hypertension: Code(s): I10 - Essential (primary) hypertension Status: Chronic Assessment and Plan: 07/22/23: Blood pressure ranging 128/85-170/107 Continue HCTZ and Benacar 07/23/23: Blood pressure ranging 99/56 to 120/92 Continue with current treatment plan 07/24/23: No change to current treatment (5) Iron deficiency anemia: Code(s): D50.9 - Iron deficiency anemia, unspecified Status: Chronic Assessment and Plan: 07/22/23: Hgb 10.8 Iron level 119, TIBC 235, Ferritin 377 Continue ferrous sulfate 07/23/23: No change to current treatment plan 07/25/23: Brother concerned that patient may have a GI bleed as his fecal occult stool was positive Hemoglobin has been stable over the past 5 days Shortness of breath is likely related to his anemia Continue ferrous sulfate GI consulted and will plan to take patient for an EGD tomorrow (6) Obstructive sleep apnea on CPAP: Code(s): G47.33 - Obstructive sleep apnea (adult) (pediatric) Status: Chronic Assessment and Plan: 07/22/23: Currently on room air Bipap/cpap ordered for use at 07/23/23: No change to current treatment plan (7) Anxiety: Code(s): F41.9 - Anxiety disorder, unspecified Status: Chronic Assessment and Plan: 07/22/23: Chlordiazepoxide restarted 07/23/23: No change to current treatment plan Time Spent With Patient Time with patient: 25 - 35 minutes Subjective Date/time seen: 07/25/23 08:23 Interval history: 07/22/23: This is a 68 year male presented to the hospital on 07/21/2023 for evaluation of shortness of breath. Workup in the hospital included chest x-ray which shows atelectasis at the lung bases. Initial labs showed a hemoglobin of 10.7, sodium 122, chloride 87, magnesium 0.9, total bili 1.9, liver enzymes are normal, iron level 119, ferritin 377, total iron binding capacity 235. Urine osmolarity and
[2023-07-25 08:31] LABS: Glucose Point of Care 100 mg/dl (65-105)
[2023-07-25 08:46] LABS: D Dimer 0.63 ug/mL (<0.48)
[2023-07-25] MEDS: TIMOLOL MALEATE 0.25% OP SOLN 5 ML BOTTLE 1 DROP EACH EYE ×2 (09:30→19:59)
--- NOTE | 2023-07-25 09:44 | PC.NURSE ---
call to CT to advise IV is in and consent is signed
--- NOTE | 2023-07-25 11:15 | ECG_ITS ---
Measurements Intervals [place] Rate: 114 P: 43 MS: 156 QRS: 45 QRSD: 67 T: 29 QT: 299 QTc: 366 Interpretive Statements SINUS TACHYCARDIA SEE SCANNED COPY FOR SIGNATURE MTDD
[2023-07-25 12:14] LABS: Glucose Point of Care 103 mg/dl (65-105)
[2023-07-25] MEDS: LACTATED RINGERS 1,000 ML 150 ML IV CONT (13:10)
--- NOTE | 2023-07-25 13:19 | WPDANESEPPF ---
Anes - Initial Pre Proc Eval Procedure: Operation Date: 07/25/23 15:30 Proposed Procedures p Esophagogastroduodenoscopy & Colonoscopy - Emil Velazquez MD Date/Time: 07/25/23 13:19 Surgeon: Willie Campo MD Pre Op Diagnosis: hyponatremia,soa Patient Data Age: 68 Gender: M Height: 1.78 m Weight: 91 kg Last Vital Signs Temp 96.3 F L 07/25/23 13:06 Pulse 107 H 07/25/23 13:06 Resp 20 07/25/23 13:06 BP 98/66 L 07/25/23 13:06 Pulse Ox 98 07/25/23 13:06 O2 Del Method Room Air 07/25/23 13:06 Allergies Allergy/AdvReac Type Severity Reaction Status Date / Time No Known Allergies Allergy Unknown Verified 07/25/23 13:05 Home Medications Medication Instructions Recorded Confirmed Type timolol maleate 0.25 % eye drops 1 drp ophthalmic (eye) Q12H #15 mL 01/26/21 07/21/23 Rx ferrous sulfate 325 mg (65 mg 325 mg PO BID 10/13/21 07/21/23 History iron) tablet DME #1 ea 10/31/22 07/23/23 Rx olmesartan 20 1 tablet PO DAILY #90 tabs 02/22/23 07/21/23 Rx mg-hydrochlorothiazide 12.5 mg tablet (Benicar HCT) dextroamphetamine sulfate 10 mg 20 mg PO BID #120 tabs 06/04/23 07/21/23 Rx tablet Laboratory Tests 07/24/23 07/24/23 07/25/23 17:10 21:59 00:21 WBC RBC Hgb Hct MCV MCH MCHC RDW Plt Count MPV Immature Gran % (Auto) Neut % (Auto) Lymph % (Auto) [place] % (Auto) Eos % (Auto) Baso % (Auto) Lymph # (Auto) [place] # (Auto) Eos # (Auto) Baso # (Auto) Abs Immat Gran (auto) Absolute Neuts (auto) Absolute Nucleated RBC Nucleated RBC % Platelet Estimate Hypochromasia Schistocytes D-Dimer Sodium Potassium Chloride Carbon Dioxide Anion Gap BUN Creatinine Estim Creat Clear Calc Estimated GFR Glucose POC Capillary Glucose 115 H mg/dl 109 H mg/dl 89 mg/dl (65-105) (65-105) (65-105) Calcium Magnesium Total Bilirubin AST ALT Alkaline Phosphatase Total Protein Albumin 07/25/23 07/25/23 07/25/23 04:57 06:03 07:45 WBC 5.8 K/mm3 (4.5-10.0) RBC 3.06 L M/mm3 (4.6-6.20) Hgb 10.9 L g/dL (14.0-18.0) Hct 33.1 L % (42.0-52.0) MCV 108.2 H fl (80-100) MCH 35.6 H pg (26-34) MCHC 32.9 g/dl (32-36) RDW 13.1 % (11.5-14.5) Plt Count 203 k/mm3 (150-375) MPV 9.7 fl (7.4-10.4) Immature Gran % (Auto) 1.2 H % (0-0.5) Neut % (Auto) 67.4 % (45.5-73.1) Lymph % (Auto) 14.5 L % (18.3-44.2) [place] % (Auto) 13.8 H % (2.6-8.5) Eos % (Auto) 2.2 % (0-4.4) Baso % (Auto) 0.9 % (0.2-1.2) Lymph # (Auto) 0.84 L K/mm3 (0.9-3.2) [place] # (Auto) 0.8 H K/mm3 (0.1-0.6) Eos # (Auto) 0.1 K/mm3 (0-0.3) Baso # (Auto) 0.1 K/mm3 (0.0-0.1) Abs Immat Gran (auto) 0.07 H K/mm3 (0.00-0.031) Absolute Neuts (auto) 3.9 K/mm3 (1.3-6.7) Absolute Nucleated RBC 0.000 K/mm3 (0.0-0.012) Nucleated RBC % 0.0 % (0.0-0.2) Platelet Estimate Adequate (Adequate) Hypochromasia 1+ Schistocytes None seen D-Dimer 0.63 H ug/mL (<0.48) Sodium 134 L mmol/L (137-145) Potassium 4.1 mmol/L (3.4-5.0) Chloride 100 mmol/L (98-107) Carbon Dioxide 27 mmol/L (22-30) Anion Gap 7 mmol/L (4-12) BUN 21
--- NOTE | 2023-07-25 14:10 | SUR.OPER ---
EGD: 8009-1505 COLON: Start 140
[2023-07-25 14:38] LABS: Osmolality, Urine 263 mOsm/kg (50-1200)
--- NOTE | 2023-07-25 15:13 | PC.NURSE ---
pt returned from GI lab, assisted to chair from alexandre
--- NOTE | 2023-07-25 15:52 | PC.NURSE ---
food order placed, will administer meds once pt eats a small meal
[2023-07-25 17:44] LABS: Glucose Point of Care 111 mg/dl (65-105)
[2023-07-25] MEDS: FOLIC ACID 1 MG TABLET PO (18:08)
[2023-07-25] MEDS: FERROUS SULFATE 325 MG TABLET DR PO (18:08)
[2023-07-25] MEDS: THIAMINE HCL 100 MG TABLET PO (18:08)
[2023-07-25] MEDS: PANTOPRAZOLE 40 MG TABLET PO (18:08)
[2023-07-25] MEDS: THERAPEUTIC MULTIVITAMINS/MINERALS TAB (*BKC) 1 TABLET PO (18:08)
[2023-07-25 21:10] LABS: Glucose Point of Care 115 mg/dl (65-105)
[2023-07-26 02:40] VITALS: PULSE 96; PULSE 97; RESP 17; RESP 18; O2SAT 99
[2023-07-26] MEDS: IPRATROPIUM 0.5 MG/ALBUTEROL SULFATE 2.5 MG AMPUL.NEB 3 ML INHALATION ×2 (02:42→07:57)
[2023-07-26 04:37] LABS: Glucose Point of Care 137 mg/dl (65-105)
[2023-07-26] MEDS: chlordiazePOXIDE (*CRX) 25 MG CAPSULE PO ×2 (05:46→12:29)
[2023-07-26 06:00] VITALS: BP 103/68; PULSE 116; RESP 20; TEMP 35.8; O2SAT 96
[2023-07-26 06:27] LABS: Basophils Absolute Auto 0.1 K/mm3 (0.0-0.1); Basophils Percent Auto 1.1 % (0.2-1.2); Eosinophils Absolute Auto 0.1 K/mm3 (0-0.3); Eosinophils Percent Auto 1.8 % (0-4.4); Hematocrit 33.9 % (42.0-52.0); Immature Granulocyte Absolute 0.04 K/mm3 (0.00-0.031); Immature Granulocyte Percent A 0.7 % (0-0.5); Lymphocytes Absolute Auto 0.96 K/mm3 (0.9-3.2); Lymphocytes Percent Auto 17.3 % (18.3-44.2); Mean Corpuscular HGB Conc 32.4 g/dl (32-36); Mean Corpuscular Hemoglobin 35.9 pg (26-34); Mean Corpuscular Volume 110.8 fl (80-100); Mean Platelet Volume 9.6 fl (7.4-10.4); Monocytes Absolute Auto 0.9 K/mm3 (0.1-0.6); Monocytes Percent Auto 16.8 % (2.6-8.5); Neutrophils Absolute Auto 3.5 K/mm3 (1.3-6.7); Neutrophils Percent Auto 62.3 % (45.5-73.1); Platelet Count Result 240 k/mm3 (150-375); Red Blood Count 3.06 M/mm3 (4.6-6.20); Red Cell Distribution Width 13.1 % (11.5-14.5); White Blood Count 5.5 K/mm3 (4.5-10.0)
[2023-07-26 06:43] LABS: Alanine Aminotransferase 58 U/L (6-50); Albumin Level 4.4 g/dL (3.5-5.1); Alkaline Phosphatase 75 U/L (38-126); Anion Gap 7 mmol/L (4-12); Aspartate Amino Transferase 57 U/L (17-59); Bilirubin,Total 0.5 mg/dL (0.2-1.3); Blood Urea Nitrogen 22 mg/dL (9-20); Calcium 10.6 mg/dL (8.4-10.2); Carbon Dioxide 29 mmol/L (22-30); Chloride 103 mmol/L (98-107); Estimated CRCL calculation 44 ml/min; Estimated Glomerular Filt Rate 47; Glucose 100 mg/dL (65-110); Magnesium 2.3 mg/dL (1.6-2.3); Potassium 4.9 mmol/L (3.4-5.0); Sodium 139 mmol/L (137-145)
[2023-07-26 07:33] LABS: Glucose Point of Care 100 mg/dl (65-105)
[2023-07-26 07:58] VITALS: PULSE 105; RESP 18; O2SAT 96
--- NOTE | 2023-07-26 07:59 | WPDANESPN ---
Anes - Prog Note Post-Op Date/Time: 07/26/23 07:59 Cardiovascular status: normal Respiratory status: normal Airway patency: baseline Mental status: baseline Post-Op hydration status: normal Vital Signs: Last Vital Signs Temp 35.8 C L 07/26/23 06:00 Pulse 116 H 07/26/23 06:00 Resp 20 07/26/23 06:00 BP 103/68 07/26/23 06:00 Pulse Ox 96 07/26/23 06:00 O2 Del Method Autopap 07/26/23 02:40 Pain Score (VAS): 04/25 I/O: Intake & Output 07/25/23 07/25/23 07/26/23 15:59 23:59 07:59 Intake Total 67.5 240 200 Balance 67.5 240 200 Laboratory Tests 07/26/23 06:01 07/26/23 06:01 07/21/23 07/21/23 07/25/23 19:20 22:20 07:45 WBC RBC Hgb Hct MCV MCH MCHC RDW Plt Count MPV Immature Gran % (Auto) Neut % (Auto) Lymph % (Auto) Love % (Auto) Eos % (Auto) Baso % (Auto) Lymph # (Auto) Love # (Auto) Eos # (Auto) Baso # (Auto) Abs Immat Gran (auto) Absolute Neuts (auto) Absolute Nucleated RBC Nucleated RBC % D-Dimer 0.63 H Sodium Potassium Chloride Carbon Dioxide Anion Gap BUN Creatinine Estim Creat Clear Calc Estimated GFR Glucose POC Capillary Glucose Serum Osmolality 254 L Calcium Magnesium Total Bilirubin AST ALT Alkaline Phosphatase Total Protein Albumin Urine Osmolality 263 07/25/23 07/25/23 07/25/23 08:28 12:10 17:40 WBC RBC Hgb Hct MCV MCH MCHC RDW Plt Count MPV Immature Gran % (Auto) Neut % (Auto) Lymph % (Auto) Love % (Auto) Eos % (Auto) Baso % (Auto) Lymph # (Auto) Love # (Auto) Eos # (Auto) Baso # (Auto) Abs Immat Gran (auto) Absolute Neuts (auto) Absolute Nucleated RBC Nucleated RBC % D-Dimer Sodium Potassium Chloride Carbon Dioxide Anion Gap BUN Creatinine Estim Creat Clear Calc Estimated GFR Glucose POC Capillary Glucose 100 103 111 H Serum Osmolality Calcium Magnesium Total Bilirubin AST ALT Alkaline Phosphatase Total Protein Albumin Urine Osmolality 07/25/23 07/26/23 07/26/23 20:56 00:13 04:42 WBC RBC Hgb Hct MCV MCH MCHC RDW Plt Count MPV Immature Gran % (Auto) Neut % (Auto) Lymph % (Auto) Love % (Auto) Eos % (Auto) Baso % (Auto) Lymph # (Auto) Love # (Auto) Eos # (Auto) Baso # (Auto) Abs Immat Gran (auto) Absolute Neuts (auto) Absolute Nucleated RBC Nucleated RBC % D-Dimer Sodium Potassium Chloride Carbon Dioxide Anion Gap BUN Creatinine Estim Creat Clear Calc Estimated GFR Glucose POC Capillary Glucose 115 H 137 H 100 Serum Osmolality Calcium Magnesium Total Bilirubin AST ALT Alkaline Phosphatase Total Protein Albumin Urine Osmolality 07/26/23 06:01 WBC 5.5 RBC 3.06 L Hgb 11.0 L Hct 33.9 L MCV 110.8 H MCH 35.9 H MCHC 32.4 RDW 13.1 Plt Count 240 MPV 9.6 Immature Gran % (Auto) 0.7 H Neut % (Auto) 62.3 Lymph % (Auto) 17.3 L Love % (Auto) 16.8 H Eos % (Auto) 1.8 Baso % (Auto) 1.1 Lymph # (Auto) 0.96 Love # (Auto) 0.9 H Eos # (Auto) 0.1 Baso # (Auto) 0.1 Abs Immat Gran (auto) 0.04 H Absolute Neuts (auto) 3.5 Absolute Nucleated RBC 0.000 Nucleated RBC % 0.0 D-Dimer Sodium 139 Potassium 4.9 Chloride 103 Carbon Dioxide 29 Anion Gap 7 BUN 22 H Creatinine 1.50 H Estim Creat Clear Calc 44 Estimated GFR 47 L Glucose 100 POC Capillary Glucose Serum Osmolality Calcium 10.6 H Magnesium 2.3 Total Bilirubin 0.5 AST 57 ALT 58 H Alkaline Phosphatase 75 Total Protein 8.0 Albumin 4.4 Urine Osmolality Post-procedural complaints: none Patient Feedback: Patient satisfied with anesthetic care.
[2023-07-26 08:08] VITALS: PULSE 103; RESP 18
--- NOTE | 2023-07-26 08:08 | P.PNIM_ITS ---
Progress Note: A&P Assessment and Plan (1) Hyponatremia: Code(s): E87.1 - Hypo-osmolality and hyponatremia Status: Acute Assessment and Plan: 07/22/23: * Sodium is 126 * Hyponatremia likely due to alcohol abuse. * Serum osmolarity, urine osmolarity, cortisol pending * Urine random sodium 92 * hold on IV fluids * Seizure precautions * Will check TSH as well * Patient placed on fluid restriction 07/23/23: * Sodium is 129 today * Serum and urine osmolarity are pending * Cortisol level was normal at 7.13 * TSH at 1.640 * Continue with fluid restriction * ? Tea and toast as patient states that he has not been eating and drinking like he normally did 07/25/23: * Sodium today is 134 * Serum and urine osmolarity are still pending * Hydrochlorothiazide hold 07/26/23: * Na+ 139 * Serum osmolarity 254, urine osmolarity 263, Urine sodium 92. * Continue to hold HCTZ (2) Alcohol abuse: Code(s): F10.10 - Alcohol abuse, uncomplicated Status: Acute Assessment and Plan: 07/22/23: * Patient has history of alcohol abuse, patient drinks vodka on a regular basis * Patient denies any history of withdrawal in the past. * CIWA protocol ordered * Continue Thiamine and folic acid * Ativan ordered PRN * Seizure precautions 07/23/23: * Continue with current treatment plan (3) Shortness of breath: Code(s): R06.02 - Shortness of breath Status: Acute Assessment and Plan: 07/22/23: * Continue DuoNebs q.6 hour * Lungs clear to auscultation * Currently on room air * He does not appear to be in any acute respiratory distress 07/23/23: * Chest x-ray negative * No change to current treatment plan 07/25/23: * Patient still complaining of shortness of breath, he was noted to have heart rate in 110-120 on the monitor. D-dimer was slightly elevated, CTA of chest was negative for PE. His shortness of breath is likely due to his chronic anemia. Continue with supportive measures * Venous Dopplers were negative for DVT this admission * Chest x-ray was also negative * Patient is currently room air, no acute respiratory distress seen, use of accessory muscles 07/26/23: * No change to current treatment plan (4) Essential (primary) hypertension: Code(s): I10 - Essential (primary) hypertension Status: Chronic Assessment and Plan: 07/22/23: * Blood pressure ranging 128/85-170/107 * Continue HCTZ and Benacar 07/23/23: * Blood pressure ranging 99/56 to 120/92 * HCTZ on hold * Continue with current treatment plan 07/24/23: * No change to current treatment (5) Iron deficiency anemia: Code(s): D50.9 - Iron deficiency anemia, unspecified Status: Chronic Assessment and Plan: 07/22/23: * Hgb 10.8 * Iron level 119, TIBC 235, Ferritin 377 * Continue ferrous sulfate 07/23/23: * No change to current treatment plan 07/25/23: * Brother concerned that patient may have a GI bleed as his fecal occult stool was positive * Hemoglobin has been stable over the past 5 days * Shortness of breath is likely related to his anemia * Continue ferrous sulfate * GI consulted and will plan to take patient for an EGD tomorrow 07/26/23: * EGD shown * GI following * Hgb today 11.0 (6) Obstructive sleep apnea on CPAP: Code(s): G47.33 - Obstructive sleep apnea (adult) (pediatric) Status: Chronic Assessment and Plan: 07/22/23: * Currently on room air * Bipap/cpap ordered for use
--- NOTE | 2023-07-26 08:08 | PM.IMPN ---
Progress Note: A&P Assessment and Plan (1) Hyponatremia: Code(s): E87.1 - Hypo-osmolality and hyponatremia Status: Acute Assessment and Plan: 07/22/23: Sodium is 126 Hyponatremia likely due to alcohol abuse. Serum osmolarity, urine osmolarity, cortisol pending Urine random sodium 92 hold on IV fluids Seizure precautions Will check TSH as well Patient placed on fluid restriction 07/23/23: Sodium is 129 today Serum and urine osmolarity are pending Cortisol level was normal at 7.13 TSH at 1.640 Continue with fluid restriction ? Tea and toast as patient states that he has not been eating and drinking like he normally did 07/25/23: Sodium today is 134 Serum and urine osmolarity are still pending Hydrochlorothiazide hold 07/26/23: Na+ 139 Serum osmolarity 254, urine osmolarity 263, Urine sodium 92. Continue to hold HCTZ (2) Alcohol abuse: Code(s): F10.10 - Alcohol abuse, uncomplicated Status: Acute Assessment and Plan: 07/22/23: Patient has history of alcohol abuse, patient drinks vodka on a regular basis Patient denies any history of withdrawal in the past. WA protocol ordered Continue Thiamine and folic acid Ativan ordered PRN Seizure precautions 07/23/23: Continue with current treatment plan (3) Shortness of breath: Code(s): R06.02 - Shortness of breath Status: Acute Assessment and Plan: 07/22/23: Continue DuoNebs q.6 hour Lungs clear to auscultation Currently on room air He does not appear to be in any acute respiratory distress 07/23/23: Chest x-ray negative No change to current treatment plan 07/25/23: Patient still complaining of shortness of breath, he was noted to have heart rate in 110-120 on the monitor. D-dimer was slightly elevated, CTA of chest was negative for PE. His shortness of breath is likely due to his chronic anemia. Continue with supportive measures Venous Dopplers were negative for DVT this admission Chest x-ray was also negative Patient is currently room air, no acute respiratory distress seen, use of accessory muscles 07/26/23: No change to current treatment plan (4) Essential (primary) hypertension: Code(s): I10 - Essential (primary) hypertension Status: Chronic Assessment and Plan: 07/22/23: Blood pressure ranging 128/85-170/107 Continue HCTZ and Benacar 07/23/23: Blood pressure ranging 99/56 to 120/92 HCTZ on hold Continue with current treatment plan 07/24/23: No change to current treatment (5) Iron deficiency anemia: Code(s): D50.9 - Iron deficiency anemia, unspecified Status: Chronic Assessment and Plan: 07/22/23: Hgb 10.8 Iron level 119, TIBC 235, Ferritin 377 Continue ferrous sulfate 07/23/23: No change to current treatment plan 07/25/23: Brother concerned that patient may have a GI bleed as his fecal occult stool was positive Hemoglobin has been stable over the past 5 days Shortness of breath is likely related to his anemia Continue ferrous sulfate GI consulted and will plan to take patient for an EGD tomorrow 07/26/23: EGD shown GI following Hgb today 11.0 (6) Obstructive sleep apnea on CPAP: Code(s): G47.33 - Obstructive sleep apnea (adult) (pediatric) Status: Chronic Assessment and Plan: 07/22/23: Currently on room air Bipap/cpap ordered for use at 07/23/23: No change to current treatment plan (7) Anxiety: Code(s): F41.9 - Anxiety disorder, unspecified Status: Chronic Assessment and Plan: 07/22/23: Chlordiazepoxide restarted 07/23/23: No change to current treatment plan (8) ANGELIA (acute kidney injury): Code(s): N17.9 - Acute kidney failure, unspecified Status: Acute Assessment and Plan: 07/26/23: BUN 22, Creatinine 1.50, eGFR 47 Continue to trend HCTZ is already on hold Subjective Date/time seen: 07/26/23 08:08 Interval history:
[2023-07-26] MEDS: PANTOPRAZOLE 40 MG TABLET PO (08:30)
[2023-07-26] MEDS: THERAPEUTIC MULTIVITAMINS/MINERALS TAB (*BKC) 1 TABLET PO (08:30)
[2023-07-26] MEDS: OLMESARTAN MEDOXOMIL 20 MG TABLET PO (08:30)
[2023-07-26] MEDS: THIAMINE HCL 100 MG TABLET PO (08:30)
[2023-07-26] MEDS: FOLIC ACID 1 MG TABLET PO (08:30)
[2023-07-26] MEDS: FERROUS SULFATE 325 MG TABLET DR PO (08:30)
[2023-07-26] MEDS: TIMOLOL MALEATE 0.25% OP SOLN 5 ML BOTTLE 1 DROP EACH EYE (08:30)
--- NOTE | 2023-07-26 11:48 | PM.DS ---
DS: Admitting Diagnosis Discharge Date 07/26/23 Admitting Diagnosis Shortness of breath Hyponatremia Alcohol abuse Hypertension Iron deficiency anemia Obstructive sleep apnea Narcolepsy DS: Discharge Diagnosis Discharge Diagnosis (1) Hyponatremia: Code(s): E87.1 - Hypo-osmolality and hyponatremia Status: Acute (2) Alcohol abuse: Code(s): F10.10 - Alcohol abuse, uncomplicated Status: Acute (3) Shortness of breath: Code(s): R06.02 - Shortness of breath Status: Acute (4) Essential (primary) hypertension: Code(s): I10 - Essential (primary) hypertension Status: Chronic (5) Iron deficiency anemia: Code(s): D50.9 - Iron deficiency anemia, unspecified Status: Chronic (6) Obstructive sleep apnea on CPAP: Code(s): G47.33 - Obstructive sleep apnea (adult) (pediatric) Status: Chronic (7) Anxiety: Code(s): F41.9 - Anxiety disorder, unspecified Status: Chronic (8) ANGELIA (acute kidney injury): Code(s): N17.9 - Acute kidney failure, unspecified Status: Acute DS: Summary Hospital Course Reason for hospitalization: Shortness of breath Hyponatremia Alcohol abuse Hypertension Iron deficiency anemia Obstructive sleep apnea Narcolepsy Hospital Course: Interval history: 07/22/23: This is a 68 year male presented to the hospital on 07/21/2023 for evaluation of shortness of breath.? Workup in the hospital included chest x-ray which shows atelectasis at the lung bases.? Initial labs showed a hemoglobin of 10.7, sodium 122, chloride 87, magnesium 0.9, total bili 1.9, liver enzymes are normal, iron level 119, ferritin 377, total iron binding capacity 235.? Urine osmolarity and serum osmolarity is pending, urine random sodium is 92.? Respiratory panel was negative for influenza a and B, COVID, RSV. Patient given 1L NS, Duoneb, and [place] in the ED. On examination today patient is alert and oriented x3 lying in the bed.? He denies he denies any fever, chills, nausea, vomiting, diarrhea, abdominal pain, chest pain, headache..? He endorses shortness of breath recently.? Labs today show hemoglobin of 10.8, sodium is 126, chloride now 89, blood sugars ranging 107-122, magnesium 0.9, total bili is 1.9, liver enzymes are normal.? Will start magnesium replacement. 07/23/23: Patient denies any new complaints today.? He does state that he has not been eating and drinking as well as he normally has been in the past which could be the cause of the hyponatremia.? Labs today show a hemoglobin of 10.2 sodium up to 129, potassium 3.3, chloride 94, liver enzymes are elevated with an AST of 108, ALT 69, TSH is 1.64.? Urine and serum osmolarity are still pending.? Continue with fluid restriction at this time.? Chest x-ray was negative today. 07/24/23: Patient denies any new complaints today.? His sodium level is still trending up and is 131 this morning.? His hyponatremia can be contributed to his decrease intake of food and fluid coupled with the use of hydrochlorothiazide.? His hydrochlorothiazide has been placed on hold and we are seeing an upward trend now on his sodium.? Brother had some concerns that the patient is still anemic and hemoglobin is 10.0.? They did check his stool for occult blood and was positive this admission however however his H&H has remained stable the last 4 days.? Patient denies any GI complaints at this time. We will go ahead and get GI involved and see if any further work up is warranted. Patient did have an EGD done back in [address] Kraft which shown a duodenal ulcer and they biopsied for H.pylori which was positive. He was treated for the H. pylori at that time. Now brother Dr. Chu Sanchez, wants to make sure he doesn't have h.pylori again.? His discharge was cancelled pending GI evaluation. 07/25/23: Labs today show hemoglobin 10.9, sodium 134, AST 76, ALT 72, otherwise unremarkable.? GI was consulted yesterday patient was seen today.? Plan is for an E
[2023-07-26 12:21] LABS: Glucose Point of Care 118 mg/dl (65-105)
== END 2023-07-26 14:22 | disposition home or self-care (01) | DRG 812 ==
LOC: ANHED 12:33 → ANH2MED 15:38
PROVIDERS: Internal Medicine Gastroenterology; Physician Assistant; Admitting Provider Internal Medicine; Emergency Provider Emergency Medicine; PCP Family Medicine; Visit Provider Nurse Practitioner Acute Care
PROC: 0DJ08ZZ Inspection of Upper Intestinal Tract, Via Natural or Artificial Opening Endoscopic (ICD-10-PCS; CPT 43235; principal; 2023-07-25 15:30)
DX: D50.9 Iron deficiency anemia, unspecified (principal); E87.1 Hypo-osmolality and hyponatremia; J98.11 Atelectasis; F10.10 Alcohol abuse, uncomplicated; I10 Essential (primary) hypertension; E78.5 Hyperlipidemia, unspecified; K21.9 Gastro-esophageal reflux disease without esophagitis; K29.70 Gastritis, unspecified, without bleeding; K57.30 Diverticulosis of large intestine without perforation or abscess without bleeding; K64.8 Other hemorrhoids; R19.5 Other fecal abnormalities; N40.0 Benign prostatic hyperplasia without lower urinary tract symptoms; M75.01 Adhesive capsulitis of right shoulder; H40.9 Unspecified glaucoma; G47.419 Narcolepsy without cataplexy; G47.33 Obstructive sleep apnea (adult) (pediatric); F41.9 Anxiety disorder, unspecified; Z20.822 Contact with and (suspected) exposure to COVID-19; Z87.11 Personal history of peptic ulcer disease; Z98.1 Arthrodesis status
CPT/HCPCS: 36415; 71045; 71046; 71275; 76000; 80048; 80053; 82274; 82533; 82570; 82607; 82728; 82746; 82948; 83540; 83550; 83605; 83735; 83880; 83930; 83935; 84295; 84300; 84443; 84540; 85025; 85027; 85380; 87081; 87637; 88305; 88342; 93005; 93970; 94640; 96374; 97110; 97161; 97165; 97530; 99285; A9270; C8929; G0378; J2371; J2704; J3475; J7030; J7040; J7120; Q9957; Q9967

== ENCOUNTER 2023-08-02 15:27 | Outpatient (CLI) | payer BC, SELFPAY ==
[2023-08-02 19:05] LABS: Basophils Absolute Auto 0.1 K/mm3 (0.0-0.1); Basophils Percent Auto 0.9 % (0.2-1.2); Eosinophils Absolute Auto 0.2 K/mm3 (0-0.3); Eosinophils Percent Auto 2.5 % (0-4.4); Hematocrit 31.7 % (42.0-52.0); Hemoglobin 10.1 g/dL (14.0-18.0); Immature Granulocyte Absolute 0.03 K/mm3 (0.00-0.031); Immature Granulocyte Percent A 0.4 % (0-0.5); Lymphocytes Absolute Auto 0.92 K/mm3 (0.9-3.2); Lymphocytes Percent Auto 13.4 % (18.3-44.2); Mean Corpuscular HGB Conc 31.9 g/dl (32-36); Mean Corpuscular Hemoglobin 35.4 pg (26-34); Mean Corpuscular Volume 111.2 fl (80-100); Mean Platelet Volume 9.5 fl (7.4-10.4); Monocytes Absolute Auto 0.9 K/mm3 (0.1-0.6); Monocytes Percent Auto 12.4 % (2.6-8.5); Neutrophils Absolute Auto 4.8 K/mm3 (1.3-6.7); Neutrophils Percent Auto 70.4 % (45.5-73.1); Platelet Count Result 266 k/mm3 (150-375); Red Blood Count 2.85 M/mm3 (4.6-6.20); Red Cell Distribution Width 12.7 % (11.5-14.5); White Blood Count 6.9 K/mm3 (4.5-10.0)
[2023-08-02 19:29] LABS: Alanine Aminotransferase 22 U/L (6-50); Alkaline Phosphatase 67 U/L (38-126); Anion Gap 8 mmol/L (4-12); Aspartate Amino Transferase 34 U/L (17-59); Bilirubin,Total 0.4 mg/dL (0.2-1.3); Blood Urea Nitrogen 21 mg/dL (9-20); Calcium 9.4 mg/dL (8.4-10.2); Carbon Dioxide 25 mmol/L (22-30); Chloride 111 mmol/L (98-107); Cholesterol 147 mg/dL (0-200); Estimated Glomerular Filt Rate > 60; Glucose 99 mg/dL (65-110); HDL Direct 41 mg/dL; Potassium 3.8 mmol/L (3.4-5.0); Sodium 144 mmol/L (137-145); Triglycerides 83 mg/dL (<150)
[2023-08-02 19:43] LABS: LDL Cholesterol Direct 89 mg/dL
[2023-08-02 20:37] LABS: Folic Acid 14.6 ng/mL (2.76->20)
== END 2023-08-02 15:28 | disposition home or self-care (01) ==
LOC: ANHGOSHLAB 15:29
PROVIDERS: PCP Family Medicine; Visit Provider Family Medicine
DX: Z12.5 Encounter for screening for malignant neoplasm of prostate (principal); N40.0 Benign prostatic hyperplasia without lower urinary tract symptoms; I10 Essential (primary) hypertension; G47.411 Narcolepsy with cataplexy; D50.9 Iron deficiency anemia, unspecified
CPT/HCPCS: 36415; 80053; 80061; 82607; 82746; 84153; 84443; 85025; G0103

== ENCOUNTER 2024-07-02 11:47 | Outpatient (CLI) | payer BC, SELFPAY ==
[2024-07-02 13:14] LABS: Basophils Absolute Auto 0.1 K/mm3 (0.0-0.1); Eosinophils Absolute Auto 0.1 K/mm3 (0-0.3); Hematocrit 37.6 % (42.0-52.0); Hemoglobin 12.6 g/dL (14.0-18.0); Immature Granulocyte Absolute 0.03 K/mm3 (0.00-0.031); Immature Granulocyte Percent A 0.4 % (0-0.5); Lymphocytes Absolute Auto 1.08 K/mm3 (0.9-3.2); Lymphocytes Percent Auto 15.7 % (18.3-44.2); Mean Corpuscular HGB Conc 33.5 g/dl (32-36); Mean Corpuscular Hemoglobin 33.9 pg (26-34); Mean Corpuscular Volume 101.1 fl (80-100); Mean Platelet Volume 9.8 fl (7.4-10.4); Monocytes Absolute Auto 0.9 K/mm3 (0.1-0.6); Monocytes Percent Auto 12.8 % (2.6-8.5); Neutrophils Absolute Auto 4.7 K/mm3 (1.3-6.7); Neutrophils Percent Auto 68.1 % (45.5-73.1); Platelet Count Result 208 k/mm3 (150-375); Red Blood Count 3.72 M/mm3 (4.6-6.20); Red Cell Distribution Width 13.2 % (11.5-14.5); White Blood Count 6.9 K/mm3 (4.5-10.0)
--- OUTSIDE RECORDS SUMMARY | 2024-07-02 13:32 | XMS_ITS | Encounter Summary ---
Author Organization [employer] Address [address] [place] [address] Care Team Providers Care Manager Of It Name Role Phone Chung Shaw MD Primary Care Provider [phone] Reason for Visit * Reason Onset Date Comments Medical management 09/20/2020 [employer] c hat w/[employer] A[employer]LYST Ary Lujan Encounter Details Date Type Department Care Team (Late st Contact Info) Description 09/20/2020 Telephone [facility] [address] [place] [address] [place] [address] [place] [address] Medical management ([employer] chat w/[employer] ANALY[employer] Ary Lujan) Social History Tobacco Use Types Packs/Day Years Used Date Smoking Tobacco: Never Smokeless Tobacco: Never Alcohol Use Standard Drinks/Week Comments Yes 10 (1 standard drink = 0.6 oz pu re alcohol) 8/day Feeling Safe Answer Date Recorded Within the last year, have y ou been afraid of your partner or ex-partner? Patient declined 12/21/2018 Within the last year, have y ou been humiliated or emotionally abused in other ways by your partner or ex-partner? Patient declined 12/21/2018 Within the last year, have y ou been kicked, hit, slapped, or otherwise physically hurt by your partner or ex-partner? Patient declined 12/21/2018 Within the last year, have y ou been raped or forced to have any kind of sexual activity by your partner or ex-partner? Patient declined 12/21/2018 Social Connections Answer Date Recorded In a typical week, how many times do you talk on the phone with family, friends, or neighbors? Patient declined 12/21/2018 How often do you get togethe r with friends or relatives? Patient declined 12/21/2018 How often do you attend adventism or sabianist serv ices? Patient declined 12/21/2018 Do you belong to any clubs o r organizations such as adventism groups, unions, fraternal or athletic groups, or school groups? Patient declined 12/21/2018 How often do you attend meet ings of the clubs or organizations you belong to? Patient declined 12/21/2018 Are you , , di vorced, , never , or living with a partner? Patient declined 12/21/2018 Financial Resource Strain Answer Date R ecorded How hard is it for you to pa y for the very basics like food, housing, medical care, and heating? Patient declined 12/21/2018 Food Insecurity Answer Date Recorded Within the past 12 months, y ou worried that your food would run out before you got the money to buy more. Patient declined Within the past 12 months, t he food you bought just didn't last and you didn't have money to get more. Patient declined 10/2018 Transportation Needs Answer Date Record ed In the past 12 months, has l ack of transportation kept you from medical appointments or from getting medications? Patient declined 12/21/2018 In the past 12 months, has l ack of transportation kept you from meetings, work, or from getting things needed for daily living? Patient declined 12/21/2018 Sex and Gender Information Value Date Recorded Sex Assigned at Not on file Legal Sex Male 2:37 PM CDT Gender Identity Not on file Sexual Orientation Not on file Occupation Industry Job Start Date Job End Date retired Not on file Not on file Not on file COVID-19 Exposure Response Date Recorded In the last month, have you been in contact with someone who was confirmed or suspected to have Coronavirus / COVID-19? No / Unsure 09/06/2020 9:50 AM CDT documented as of this encounter Plan of Treatment Not on file documented as of this encounter Visit Diagnoses Not on filedocumented in this encounter Care Teams Manager Of It Relationship Specialty Start Date End Date Chung Shaw MD [address] [address] PCP - General Family Practice 01/02/13 documented as of this encounter
--- OUTSIDE RECORDS SUMMARY | 2024-07-02 13:32 | XMS_ITS | Encounter Summary ---
Author Organization [facility] Address [address] [place] [address] Care Team Providers Care Inward Toll Operator Name Role Phone Chung Shaw MD Primary Care Provider [phone] Reason for Visit * Reason Onset Date Comments right great toe lesian and d amaged toe nail 10/08/2020 Gave to Naz at [facility]'s of [facility] Encounter Details Date Type Department Care Team (Late st Contact Info) Description 10/08/2020 Telephone [facility] Admitting [address] [place] [address] Elda Blackman, ANIVAL [address] [place] [address] right great toe lesian and damaged toe nail (Gave to Naz at [facility]'s office) Social History Tobacco Use Types Packs/Day Years [...] declined 12/21/2018 How often do you attend quaker or holiness serv ices? Patient declined 12/21/2018 Do you belong to any clubs o r organizations such as quaker groups, unions, fraternal or athletic groups, or [...] file Not on file Not on file documented as of this encounter Plan of Treatment Not on file documented as of this encounter Visit Diagnoses Not on filedocumented in this encounter Care Teams Inward Toll Operator Relationship Specialty Start Date End Date Chung Shaw MD [address] [place] [address] PCP - General Family Practice 01/02/13 documented as of this encounter
--- OUTSIDE RECORDS SUMMARY | 2024-07-02 13:32 | XMS_ITS | Clinical Summary ---
Author Organization [facility] Address [address] [place] [address] Phone Care Team Providers Care Partner Management Consultant Name Role Phone Chung Shaw MD Primary Care Provider [phone] Allergies No known active allergies Medications timolol (TIMOPTIC) 0.25 % solution Administer 1 Drop in both eyes 2 times daily. 6 7 Active tamsulosin (FLOMAX) 0.4 mg capsule Take 0.4 mg by mouth daily. 3 9 Active artificial tears with lanolin (DURATEARS) ointment Administer 0.25 Inches in both eyes every 12 hours. 1 Active docusate sodium (COLACE) 100 mg capsule Take 1 Capsule (100 mg) by mouth 2 times daily. 1 Active finasteride (PROSCAR) 5 mg tablet Take 1 Tablet (5 mg) by mouth daily. 1 Active metoprolol tartrate (LOPRESSOR) 25 mg tablet Take 0.5 Tablets (12.5 mg) by mouth 2 times daily. 1 Active traZODone (DESYREL) 50 mg tablet Take 1 Tablet (50 mg) by mouth every 24 hours. 1 Active dextroamphetami ne-amphetamine (ADDERALL) 20 mg tabletIndicatio ns:Primary narcolepsy with cataplexy Take 1 Tablet (20 mg) by mouth 2 times daily. Max Daily Amount: 40 mg 60 Tablet 1 Active Active Problems Problem Noted Date Diagnosed Date Pseudarthrosis following spinal fusion Cervical myelopathy 06/08/2020 Other secondary kyphosis, cervical region 2020 S/P cervical spinal fusion 02/14/2019 Sepsis 12/25/2018 Encephalopathy 12/25/2018 Superficial postoperative wound infection 2018 Adhesive capsulitis of both shoulders 12/12/2018 Alcohol use with alcohol-induced disorder 2018 Debility 12/11/2018 Narcolepsy 12/11/2018 Benign essential HTN 12/11/2018 Lumbar spondylosis 01/29/2013 Cervical spondylosis with myelopathy Alcohol withdrawal delirium Urinary retention Agitation Delirium due to another medical condition Acute blood loss anemia Resolved Problems Problem Noted Date Diagnosed Date Resolved Date Suicide 10/11/2020 Suicidal ideation 10/11/2020 Acute metabolic encephalopathy 09/27/2020 [place] Agitation Sedation Scale (RASS) score minus 2, light sedation 10/11/2020 Alcohol dependence with withdrawal delirium 09/27/2020 Family History Medical History Relation Name Comments Unknown Brother Unknown Father Unknown Mother Unknown Sister Relation Name Status Comments Brother Alive Father Mother Sister Alive Social History Tobacco Use Types Packs/Day Years Used Date Smoking Tobacco: Never Smokeless Tobacco: Never Tobacco Cessation:Counseling Given: No Alcohol Use Standard Drinks/Week Comments Yes 10 [...] declined 12/21/2018 How often do you attend zoroastrian or christian serv ices? Patient declined 12/21/2018 Do you belong to any clubs o r organizations such as zoroastrian groups, unions, fraternal or athletic groups, or [...] file Not on file Not on file Last Filed Vital Signs Vital Sign Reading Time Taken Comments Blood Pressure 144/82 10/13/2020 11:20 PM CDT Pulse 98 10/13/2020 11:20 PM CDT Temperature 36.6 C (97.8 F) 10/13/2020 11:20 PM CDT Respiratory Rate 18 10/13/2020 11:20 PM CDT Oxygen Saturation 98% 10/12/2020 9:00 AM CDT Inhaled Oxygen Concentration - - Weight 90.7 kg (200 lb) 11/03/2020 2:53 PM CDT Height 177.8 cm (5' 10 ) 11/03/2020 2:53 PM CDT Body Mass Index 28.7 11/03/2020 2:53 PM CDT Plan of Treatment Health Maintenance Due Date Last Done Comments DTAP/TDAP/TD VACCINES (1 - Tdap) 06/20/1974 COLORECTAL SCREENING 06/20/2000 Colorectal Cancer Screening 06/20/2000 FIT-DNA Q 3 years 06/20/2000 FIT/FOBT Q 1 year 06/20/2000 Flex Sig/CT Colonography Q 5 years 06/20/2000 PNEUMOCOCCAL VACCINE 50+ YEARS (1 of 1 - PCV) 06/21/19 06 ZOSTER VACCINE (1 of 2) 06/20/2005 RSV VACCINE (60+ or ) (1 - Risk 60-74 years 1-dose series) 2015 INFLUENZA VACCINE (#1) 2023 Medical Devices Implanted Type Area Wheel Truer Device Identifier Shelf Expiration Date Model / Serial / Lot Stimulan Caso4 Kt 10ml 620-010 - [id number] Implanted:Qt y: 1 on 09/14/2020 by Liam Mckinney MD at [facility] Biological N/A: Spine Cervical Anterior BIOCOMPOSITES 04/15/2023 620-010 / / [id number] Description:IRMA [id number] Vti Peek [place] Interfuse Cage Implanted:Qt y: 3 on 01/29/2013 by Kevin Sterling MD at [facility] Cage N/A: Spine Lumbar 07/14/2017 9076-02-03- 0 / / [id number] Description:VTI Hemostatic Surgiflo 8ml W/Thrombin 2994 - Sn/A Implanted:Qt y: 1 on 09/14/2020 by Liam Mckinney MD at [facility] Hemostatic N/A: Spine Cervical Posterior J&J- ETHICON INC 10/13/2021 2994 / N/A / [id number] Hemostatic Surgiflo 8ml W/Thrombin 2994 - Sn/A Implanted:Qt y: 1 on 09/14/2020 by Liam Mckinney MD at [facility] Hemostatic N/A: Spine Cervical Anterior J&J- [employer] [id number] 09/13/2021 2994 / N/A / [id number] Hemostatic Surgiflo 8ml W/Thrombin 2994 - [id number] Implanted:Qt y: 1 on 09/22/2020 by Liam Mckinney MD at [facility] Hemostatic N/A: Neck J&J- [employer] [id number] 02/13/2022 2994 / / [id number] Plate Ant-Cer 2lvl 43mm [id number] - 08/19/20 Implanted:Qt y: 1 on 09/14/2020 by Liam Mckinney MD at [facility] Plate N/A: Spine Cervical Anterior MEDTRONIC- SOFAMOR DANEK [id number] / 08/19/20 [id number] Description:Entered by 09/15/2020 1x Add IRMA [id number] Roosevelt Pre Bent 45mm 5500 Series [id number] - [id number] Implanted:Qt y: 1 on 01/29/2013 by Kevin Sterling MD at [facility] Roosevelt N/A: Spine Lumbar SURG INSTR MFG INC [id number] / / [id number], STERILIZED JAN 13, 2013 Roosevelt Pre Bent 40mm 5500 Series [id number] - [id number] Implanted:Qt y: 1 on 01/29/2013 by Kevin Sterling MD at [facility] Roosevelt N/A: Spine Lumbar SURG INSTR MFG INC [id number] / / LOAD47, STERILIZED JAN 13, 2013 Roosevelt Standard 3.2mm X 240mm Implanted:Qt y: 2 on 09/14/2020 by Liam Mckinney MD at [facility] Roosevelt N/A: Spine Cervical Anterior [employer]- SOFAMOR DANEK [id number] / 08/19/20 [id number] Description:Entered by 09/15/2020 1x Add Screw Pedicle 6.5x45mm 42130-54 - [id number] Implanted:Qt y: 4 on 01/29/2013 by Kevin Sterling MD at [facility] Screw N/A: Spine Lumbar SURG INSTR MFG INC [id number] / / [id number], STERILIZED JAN 13, 2013 Screw Lck Set 3.5x45mm 41700-03 - [id number] Implanted:Qt y: 4 on 01/29/2013 by Kevin Sterling MD at [facility] Screw N/A: Spine Lumbar SURG INSTR MFG INC [id number] / / LOAD47, STERILIZED JAN 13, 2013 Screw Infinity 4.0x22mm Implanted:Qt y: 1 on 12/12/2018 by Dequan Gunter MD at [facility] Screw N/A: Spine Cervical Posterior [employer]- SOFAMOR DANEK [id number] / STERILIZED DATE 12/10/18 / LOAD #[id number] Description:ENTERED BY RN 08 [id number] Screw Zevo Va Sd 3.5x13mm [id number] - Ssterilized: August 19 Implanted:Qt y: 6 on 09/14/2020 by Liam Mckinney MD at [facility] Screw N/A: Spine Cervical Anterior [employer]- SOFAMOR DANEK [id number] / STERILIZED: AUGUST 19 / LOAD NO: [id number] Description: Screw Infinity 3.5x24mm Ma [id number] - Ssterilized: September 10 Implanted:Qt y: 1 on 09/14/2020 by Liam Mckinney MD at [facility] Screw N/A: Spine Cervical Anterior [employer]- SOFAMOR DANEK [id number] / STERILIZED: SEPTEMBER 10 / LOAD NO: [id number] Description: Screw Infinity 3.5x22mm Ma [id number] - Ssterilized: September 10 Implanted:Qt y: 1 on 09/14/2020 by Liam Mckinney MD at [facility] Screw N/A: Spine Cervical Anterior [employer]- SOFAMOR DANEK [id number] / STERILIZED: SEPTEMBER 10 / LOAD NO: [id number] Description: Screw Infinity Ma 3.5x16mm [id number] - Ssterilized: September 10 Implanted:Qt y: 4 on 09/14/2020 by Liam Mckinney MD at [facility] Screw N/A: Spine Cervical Anterior [employer]- SOFAMOR DANEK [id number] / STERILIZED: SEPTEMBER 10 / LOAD NO: [id number] Description: Screw Infinity Ma 3.5x14mm [id number] - Ssterilized: September 10 Implanted:Qt y: 2 on 09/14/2020 by Liam Mckinney MD at [facility] Screw N/A: Spine Cervical Anterior [employer]- SOFAMOR DANEK [id number] / STERILIZED: SEPTEMBER 10 / LOAD NO: [id number] Description: Screw Infinity 4.0x16mm Ma [id number] - Ssterilized: September 10 Implanted:Qt y: 2 on 09/14/2020 by Liam Mckinney MD at [facility] Screw N/A: Spine Cervical Anterior [employer]- SOFAMOR DANEK [id number] / STERILIZED: SEPTEMBER 10 / LOAD NO: [id number] Screw Infinity Ma 4.0x28mm [id number] - Ssterilized: September 10 Implanted:Qt y: 2 on 09/14/2020 by Liam Mckinney MD at [facility] Screw N/A: Spine Cervical Anterior [employer]- SOFAMOR DANEK [id number] / STERILIZED: SEPTEMBER 10 / LOAD NO: [id number] Description: Screw Infinity 4.5x28mm Ma [id number] - Ssterilized: September 10 Implanted:Qt y: 2 on 09/14/2020 by Liam Mckinney MD at [facility] Screw N/A: Spine Cervical Anterior [employer]- SOFAMOR DANEK [id number] / STERILIZED: SEPTEMBER 10 / LOAD NO: [id number] Description: Set Screw M6 Implanted:Qt y: 16 on 09/14/2020 by Liam Mckinney MD at [facility] Screw N/A: Spine Cervical Anterior [employer]- SOFAMOR DANEK [id number] / 08/19/20 / [id number] Description:Entered by SAIMA 09/15/2020 1x Add Sealant Floseal W/ Adptr 10ml [id number] - [id number] Implanted:Qt y: 1 on 01/29/2013 by Kevin Sterling MD at [facility] Sealant N/A: Spine Lumbar THOMPSON- BIOSCIENCE 03/15/2014 [id number] / / [id number] Allgrft Magnifuse Pc [id number] - [id number] Implanted:Qt y: 1 on 12/12/2018 by Dequan Gunter MD at [facility] Tissue N/A: Spine Cervical Posterior [employer] 05/09/2020 [id number] / [id number] / Infuse Protein Kit [id number] - [id number] Implanted:Qt y: 1 on 12/12/2018 by Dequan Gunter MD at [facility] N/A: Spine Cervical Posterior [employer]- SOFAMOR DANEK 12/14/2020 [id number] / / [id number] Bone Lordotic Asr 984387 - [id number] Implanted:Qt y: 1 on 09/14/2020 by Liam Mckinney MD at [facility] Tissue N/A: Spine Cervical Anterior [employer] 06/20/2021 [id number] / [id number] / [id number] [place] Dbm 8x10cm [id number] - [id number] Implanted:Qt y: 1 on 09/14/2020 by Liam Mckinney MD at [facility] Tissue N/A: Spine Cervical Anterior [employer] 07/29/2023 [id number] / [id number] / Description:REQ#[id number] Bone Lordotic Asr 590728 - [id number] Implanted:Qt y: 1 on 09/14/2020 by Liam Mckinney MD at [facility] Tissue N/A: Spine Cervical Anterior [employer] 04/04/2021 [id number] / [id number] / [id number] Description:IRMA [id number] Explanted Type Area Wheel Truer Device Identifier Shelf Expiration Date Model / Serial / Lot Hemostatic Surgiflo 8ml W/Thrombin 2994 - [id number] Explanted:Qty : 1 on 12/12/2018 by Dequan Gunter MD at [facility] Hemostatic J&J- [employer] 11/14/2019 2994 / / [id number] Roosevelt 3.5x80mm Implanted:Qty : 2 on 12/12/2018 by Dequan Gunter MD at [facility] Explanted:Qty : 2 on 09/14/2020 by Liam Mckinney MD at [facility] Roosevelt N/A: Spine Cervical Posterior MED[employer]- SOFAMOR DANEK [id number] / STERILIZE D DATE 12/10/18 / LOAD #[id number] Description:ENTERED BY RN 08 [id number] Screw Spn Multi Raffaele 3.5x12mm [id number] - [id number] Implanted:Qty : 2 on 12/12/2018 by Dequan Gunter MD at [facility] Explanted:Qty : 2 on 09/14/2020 by Liam Mckinney MD at [facility] Screw [employer]- SOFAMOR DANEK [id number] / / Description:Load No: 192 396 06 Sterilized Date: IRMA REQ [id number] Infinity Set Screws Implanted:Qty : 8 on 12/12/2018 by Dequan Gunter MD at [facility] Explanted:Qty : 8 on 09/14/2020 by Liam Mckinney MD at [facility] Screw N/A: Spine Cervical Posterior [employer]- SOFAMOR DANEK [id number] / STERILIZE D DATE 12/10/18 / LOAD #[id number] Description:ENTERED BY RN 08 [id number] Screw Infinity 3.5x14mm Implanted:Qty : 4 on 12/12/2018 by Dequan Gunter MD at [facility] Explanted:Qty : 4 on 09/14/2020 by Liam Mckinney MD at [facility] Screw N/A: Spine Cervical Posterior [employer]- SOFAMOR [employer]ANEK [id number] / STERILIZE D DATE 12/10/18 / LOAD #[id number] Description:ENTERED BY YENNIFER Ramírez [id number] Screw Infinity 4.0x24mm Implanted:Qty : 1 on 12/12/2018 by Dequan Gunter MD at [facility] Explanted:Qty : 1 on 09/14/2020 by Liam Mckinney MD at [facility] Screw N/A: Spine Cervical Posterior [employer]- SOFAMOR DANEK [id number] / STERILIZE D DATE 12/10/18 / LOAD #[id number] 6 Description:ENTERED BY RN 08 [id number] Insurance MEDICARE PART A HOSPITAL ONLY [facility] FEDERAL RX [facility] [employer] Advance Directives For more information, please contact: [phone] * Full Code (Latest Code Status on File) Date Activated Date Inactivated Comments 09/27/2020 5:48 PM 10/12/2020 3:54 PM * Full Code Date Activated Date Inactivated Comments 09/14/2020 4:01 PM 09/27/2020 5:47 PM * Full Code Date Activated Date Inactivated Comments 12/21/2018 3:08 AM 01/15/2019 7:35 PM * Full Code Date Activated Date Inactivated Comments 12/19/2018 5:39 PM 12/21/2018 3:06 AM * Full Code Date Activated Date Inactivated Comments 12/12/2018 4:11 PM 12/19/2018 5:27 PM Care Teams Partner Management Consultant Relationship Specialty Start Date End Date Chung Shaw MD [address] [place] [address] PCP - General Family Practice 01/02/13
[2024-07-02 13:43] LABS: Potassium 4.1 mmol/L (3.4-5.0)
[2024-07-02 14:19] LABS: Alanine Aminotransferase 16 U/L (6-50); Albumin Level 4.5 g/dL (3.5-5.1); Alkaline Phosphatase 81 U/L (38-126); Anion Gap 11 mmol/L (4-12); Aspartate Amino Transferase 39 U/L (17-59); Bilirubin,Total 0.7 mg/dL (0.2-1.3); Blood Urea Nitrogen 16 mg/dL (9-20); Calcium 9.5 mg/dL (8.4-10.2); Carbon Dioxide 28 mmol/L (22-30); Chloride 99 mmol/L (98-107); Estimated Glomerular Filt Rate > 60; Glucose 98 mg/dL (65-110); Sodium 138 mmol/L (137-145)
== END 2024-07-02 11:48 | disposition home or self-care (01) ==
LOC: ANHGOSHLAB 11:48
PROVIDERS: PCP Family Medicine; Visit Provider Family Medicine
DX: D50.9 Iron deficiency anemia, unspecified (principal); E87.1 Hypo-osmolality and hyponatremia
CPT/HCPCS: 36415; 80053; 85025